=== PATIENT | female | born 1950 | race African-American/Black ===

== ENCOUNTER 2019-02-05 13:45 | Inpatient (IN) | payer MEDICARE, MEDICAID ==
[~2019-02-05] VITALS: Ht 170.2 cm; Wt 191.1 kg
[~2019-02-05 13:45] MED LIST: ACET1TAB14 PO; ASPI-1393 PO; ERGO500013 PO; GABA800T PO; HYDR100T26 PO; LASIX PO; LOTENSIN PO; METO-539 PO; NORVASC; POTASSIUM PO
[2019-02-05] MEDS ORDERED: FUROSEMIDE 40MG/4ML VIAL IV ONE (14:15)
[2019-02-05] MEDS ORDERED: NITROGLYCERIN OINT 1GM/INCH UDPKT TD ONE (14:15)
[2019-02-05] MEDS ORDERED: ASPIRIN 81MG TABLET PO ONE (14:15)
[2019-02-05] MEDS ORDERED: IPRATROPIUM BROMIDE (0.02%) 0.5MG/2.5ML NEB HHN STA (14:28)
[2019-02-05] MEDS ORDERED: METHYLPREDNISOLONE SOD SUCC 125 MG/2 ML VIAL IV STA (14:28)
[2019-02-05] MEDS ORDERED: ALBUTEROL (0.083%) 2.5MG/3ML NEB HHN STA (14:28)
[2019-02-05 15:35] LABS: BASOPHILS % 0.2 % (0.0-2.0); EOSINOPHILS % 2.1 % (0.0-5.0); HEMATOCRIT. 28.6 % (36.0-48.0); LYMPHOCYTES % 19.9 % (20.0-50.0); MEAN CORPUSCULAR HEMOGLOBIN 31.2 pg (28.0-32.0); MEAN CORPUSCULAR VOLUME 99.4 fL (81.0-99.0); MEAN PLATELET VOLUME 7.9 fl (7.4-10.4); MONOCYTES % 8.6 % (2.0-8.0); NEUTROPHILS % 69.2 % (40.0-76.0); PLATELET 175 x1000/uL (130-400); RED BLOOD CELL COUNT 2.88 mill/uL (4.2-5.4); RED CELL DISTRIBUTION WIDTH 15.2 % (11.6-14.6)
[2019-02-05 15:36] LABS: CHLORIDE 98 mEq/L (98-107)
[2019-02-05 15:41] LABS: INR 1.2; PARTIAL THROMBOPLASTIN TIME 27.8 sec (23.4-31.0)
[2019-02-05] MEDS ORDERED: CLONIDINE 0.1MG TABLET PO PRN (18:30)
[2019-02-05] MEDS: METHYLPREDNISOLONE SOD SUCC 40 MG/ML VIAL IV SCH (20:37)
[2019-02-05] MEDS: METOPROLOL TARTRATE 50MG TABLET PO SCH (20:38)
[2019-02-05] MEDS: IPRATROPIUM/ALBUTEROL 0.5-3(2.5)MG/3ML NEB HHN SCH (21:00)
[2019-02-05 21:52] LABS: BG BASE EXCESS 11.7 mmol/L (-2.0-2.0); BG CARBOXYHEMOGLOBIN 0.4 % (0.5-1.5); BG DEOXYHEMOGLOBIN 3.7 % (0.0-5.0); BG FRACTION INSPIRED OXYGEN 28; BG HCO3 ACT 38.6 mmol/L (22.0-26.0); BG METHEMOGLOBIN 0.2 % (0.0-1.5); BG OXYGEN SATURATION 96.3 % (92.0-98.5); BG OXYHEMOGLOBIN 95.7 % (94.0-97.0); BG PCO2 65.7 mmHg (35.0-45.0); BG PH 7.387 (7.350-7.450); BG PO2 87.3 mmHg (75.0-100.0); BG SAMPLE SITE RIGHT RADIAL; BG TOTAL HEMOGLOBIN 9.8 g/dL (12.0-18.0); BG VENT MODE NASAL CANNULA
[2019-02-05] MEDS: HYDRALAZINE HCL 100MG TABLET PO SCH (21:57)
[2019-02-05 23:25] LABS: CREATINE KINASE MB FRACTION 1.9 ng/mL (0.5-3.6)
[2019-02-06 00:25] VITALS: BP 133/64
[2019-02-06] MEDS: IPRATROPIUM/ALBUTEROL 0.5-3(2.5)MG/3ML NEB HHN SCH ×6 (02:52→21:11)
[2019-02-06] MEDS: METHYLPREDNISOLONE SOD SUCC 40 MG/ML VIAL IV SCH ×3 (03:23→17:53)
[2019-02-06] MEDS: ACETAMINOPHEN 325MG TABLET PO PRN (03:39)
[2019-02-06 04:00] VITALS: BP 141/63
[2019-02-06 06:46] LABS: HEMATOCRIT. 26.6 % (36.0-48.0); HEMOGLOBIN. 8.5 g/dL (12.0-16.0); MEAN CORPUSCULAR HEMOGLOBIN 31.2 pg (28.0-32.0); MEAN CORPUSCULAR VOLUME 98.2 fL (81.0-99.0); MEAN PLATELET VOLUME 7.9 fl (7.4-10.4); PLATELET 159 x1000/uL (130-400); RED BLOOD CELL COUNT 2.71 mill/uL (4.2-5.4); RED CELL DISTRIBUTION WIDTH 14.9 % (11.6-14.6)
[2019-02-06 06:54] LABS: CHLORIDE 100 mEq/L (98-107)
[2019-02-06 07:05] LABS: CREATINE KINASE 242 IU/L (26-192)
[2019-02-06 07:07] LABS: CREATINE KINASE MB FRACTION 1.4 ng/mL (0.5-3.6)
[2019-02-06] MEDS: HYDRALAZINE HCL 100MG TABLET PO SCH ×3 (07:08→21:56)
[2019-02-06 08:36] VITALS: BP 146/74
[2019-02-06] MEDS: BENAZEPRIL 10MG TABLET PO SCH ×2 (09:00→10:06)
[2019-02-06] MEDS: ASPIRIN 81MG EC TABLET PO SCH (10:06)
[2019-02-06] MEDS: FUROSEMIDE 100MG/10ML VIAL IVP SCH ×2 (10:07→17:53)
[2019-02-06] MEDS: METOPROLOL TARTRATE 50MG TABLET PO SCH ×2 (10:07→21:57)
[2019-02-06 11:41] VITALS: BP 118/58
[2019-02-06 12:55] LABS: PLATELET ESTIMATE NORMAL
[2019-02-06 16:01] VITALS: BP 118/57
[2019-02-06 20:00] VITALS: BP 144/36
[2019-02-07] VITALS (8 sets, daily range): BP systolic 112–162; BP diastolic 56–89
[2019-02-07] MEDS: IPRATROPIUM/ALBUTEROL 0.5-3(2.5)MG/3ML NEB HHN SCH ×5 (00:18→15:39)
[2019-02-07] MEDS: ACETAMINOPHEN 325MG TABLET PO PRN ×2 (01:29→19:06)
[2019-02-07] MEDS: METHYLPREDNISOLONE SOD SUCC 40 MG/ML VIAL IV SCH ×3 (03:03→19:12)
[2019-02-07] MEDS: HYDRALAZINE HCL 100MG TABLET PO SCH ×3 (06:00→22:04)
[2019-02-07 06:25] LABS: HEMATOCRIT. 26.6 % (36.0-48.0); HEMOGLOBIN. 8.4 g/dL (12.0-16.0); MEAN CORPUSCULAR HEMOGLOBIN 30.8 pg (28.0-32.0); MEAN CORPUSCULAR VOLUME 97.8 fL (81.0-99.0); MEAN PLATELET VOLUME 8.2 fl (7.4-10.4); PLATELET 170 x1000/uL (130-400); RED BLOOD CELL COUNT 2.72 mill/uL (4.2-5.4); RED CELL DISTRIBUTION WIDTH 15.3 % (11.6-14.6)
[2019-02-07 06:34] LABS: CHLORIDE 96 mEq/L (98-107)
[2019-02-07] MEDS: FUROSEMIDE 100MG/10ML VIAL IVP SCH ×2 (09:00→18:25)
[2019-02-07] MEDS: METOPROLOL TARTRATE 50MG TABLET PO SCH ×2 (09:34→22:04)
[2019-02-07] MEDS: BENAZEPRIL 10MG TABLET PO SCH (09:35)
[2019-02-07] MEDS: ASPIRIN 81MG EC TABLET PO SCH (09:35)
[2019-02-07 10:47] LABS: PLATELET ESTIMATE NORMAL
[2019-02-07 15:28] LABS: CHLORIDE 96 mEq/L (98-107)
[2019-02-08] VITALS (8 sets, daily range): BP systolic 141–173; BP diastolic 72–90
[2019-02-08] MEDS: IPRATROPIUM/ALBUTEROL 0.5-3(2.5)MG/3ML NEB HHN SCH ×5 (00:56→20:39)
[2019-02-08] MEDS: METHYLPREDNISOLONE SOD SUCC 40 MG/ML VIAL IV SCH ×3 (02:48→18:50)
[2019-02-08] MEDS: ONDANSETRON HCL 4MG/2ML INJ IV PRN ×3 (05:15→14:16)
[2019-02-08] MEDS ORDERED: PANTOPRAZOLE SODIUM 40 MG/VIAL IV SCH ×2 (07:00→21:00)
[2019-02-08] MEDS: BENAZEPRIL 10MG TABLET PO SCH (09:00)
[2019-02-08] MEDS: ASPIRIN 81MG EC TABLET PO SCH (09:00)
[2019-02-08] MEDS: DEXT 5%/0.9% NACL 1,000 ML IV SCH (10:47)
[2019-02-08 11:05] LABS: HEMATOCRIT. 27.3 % (36.0-48.0); HEMOGLOBIN. 8.7 g/dL (12.0-16.0); MEAN CORPUSCULAR HEMOGLOBIN 31.5 pg (28.0-32.0); MEAN CORPUSCULAR VOLUME 99.1 fL (81.0-99.0); MEAN PLATELET VOLUME 8.1 fl (7.4-10.4); PLATELET 158 x1000/uL (130-400); RED BLOOD CELL COUNT 2.75 mill/uL (4.2-5.4); RED CELL DISTRIBUTION WIDTH 15.3 % (11.6-14.6)
[2019-02-08 11:06] LABS: CHLORIDE 96 mEq/L (98-107)
[2019-02-08] MEDS: FUROSEMIDE 100MG/10ML VIAL IVP SCH ×2 (11:54→16:28)
[2019-02-08 13:49] LABS: PLATELET ESTIMATE NORMAL
[2019-02-08] MEDS: HYDRALAZINE HCL 100MG TABLET PO SCH ×2 (14:00→23:51)
[2019-02-08] MEDS: METOCLOPRAMIDE HCL 10MG/2ML VIAL IV SCH ×2 (14:16→22:47)
[2019-02-08] MEDS ORDERED: HYDRALAZINE 20MG/ML VIAL IV PRN (15:30)
[2019-02-08] MEDS ORDERED: HYDRALAZINE 20MG/ML VIAL IV NR (15:53)
[2019-02-08] MEDS: PANTOPRAZOLE SODIUM 40 MG/VIAL IV SCH (16:28)
[2019-02-08] MEDS ORDERED: BISACODYL 10MG SUPP PR PRN (16:45)
[2019-02-08] MEDS: HYDRALAZINE 20MG/ML VIAL IV SCH ×2 (16:58→22:47)
[2019-02-08] MEDS: ENALAPRIL 1.25MG/ML VIAL 1ML IV SCH ×2 (17:07→23:51)
[2019-02-08] MEDS: CLONIDINE HCL 0.3MG/24HR PATCH TD SCH (17:07)
[2019-02-08] MEDS: SUCRALFATE 1 G/10 ML UDC PO SCH ×2 (17:14→22:47)
[2019-02-08] MEDS: METOPROLOL TARTRATE 50MG TABLET PO SCH (21:00)
[2019-02-08] MEDS: AMLODIPINE 5MG TABLET PO SCH (22:47)
[2019-02-09] VITALS (12 sets, daily range): BP systolic 143–183; BP diastolic 74–106
[2019-02-09] MEDS: IPRATROPIUM/ALBUTEROL 0.5-3(2.5)MG/3ML NEB HHN SCH ×7 (00:17→21:55)
[2019-02-09 00:33] LABS: HEMATOCRIT. 28.2 % (36.0-48.0); HEMOGLOBIN. 8.9 g/dL (12.0-16.0); MEAN CORPUSCULAR HEMOGLOBIN 31.4 pg (28.0-32.0); MEAN CORPUSCULAR VOLUME 99.3 fL (81.0-99.0); MEAN PLATELET VOLUME 8.1 fl (7.4-10.4); PLATELET 167 x1000/uL (130-400); RED BLOOD CELL COUNT 2.84 mill/uL (4.2-5.4); RED CELL DISTRIBUTION WIDTH 15.3 % (11.6-14.6)
[2019-02-09 00:50] LABS: TOTAL IRON BINDING CAPACITY 402 ug/dL (250-450)
[2019-02-09] MEDS: METHYLPREDNISOLONE SOD SUCC 40 MG/ML VIAL IV SCH ×3 (01:37→18:04)
[2019-02-09] MEDS: DEXT 5%/0.9% NACL 1,000 ML IV SCH ×2 (01:37→16:08)
[2019-02-09] MEDS: HYDRALAZINE 20MG/ML VIAL IV SCH ×5 (01:38→21:01)
[2019-02-09 01:53] LABS: FERRITIN 59 ng/mL (10-291)
[2019-02-09 02:05] LABS: VITAMIN B12 SERUM 461 pg/mL (211-911)
[2019-02-09] MEDS: ONDANSETRON HCL 4MG/2ML INJ IV PRN ×2 (02:45→14:03)
[2019-02-09] MEDS: ENALAPRIL 1.25MG/ML VIAL 1ML IV SCH (05:22)
[2019-02-09] MEDS: METOCLOPRAMIDE HCL 10MG/2ML VIAL IV SCH ×3 (05:22→21:01)
[2019-02-09] MEDS: HYDRALAZINE HCL 100MG TABLET PO SCH ×3 (05:24→22:20)
[2019-02-09 05:41] LABS: PLATELET ESTIMATE NORMAL
[2019-02-09] MEDS: SUCRALFATE 1 G/10 ML UDC PO SCH ×4 (06:28→21:01)
[2019-02-09 07:43] LABS: HEMATOCRIT 28.6 % (36.0-48.0); HEMOGLOBIN 9.1 g/dL (12.0-16.0)
[2019-02-09] MEDS: BENAZEPRIL 10MG TABLET PO SCH (09:00)
[2019-02-09] MEDS: DOCUSATE SODIUM 250MG CAPSULE PO SCH (09:00)
[2019-02-09] MEDS: AMLODIPINE 5MG TABLET PO SCH ×2 (09:00→21:01)
[2019-02-09] MEDS: METOPROLOL TARTRATE 50MG TABLET PO SCH ×2 (09:00→21:02)
[2019-02-09] MEDS ORDERED: PANTOPRAZOLE SODIUM 40 MG/VIAL IV SCH (09:00)
[2019-02-09] MEDS: PANTOPRAZOLE SODIUM 40 MG/VIAL IV SCH ×2 (09:18→17:25)
[2019-02-09] MEDS: FUROSEMIDE 100MG/10ML VIAL IVP SCH ×2 (09:18→17:00)
[2019-02-09 11:09] LABS: BG BASE EXCESS 22.2 mmol/L (-2.0-2.0); BG CARBOXYHEMOGLOBIN 0.5 % (0.5-1.5); BG DEOXYHEMOGLOBIN 2.6 % (0.0-5.0); BG FRACTION INSPIRED OXYGEN 32; BG HCO3 ACT 52.6 mmol/L (22.0-26.0); BG METHEMOGLOBIN 0.3 % (0.0-1.5); BG OXYGEN SATURATION 97.4 % (92.0-98.5); BG OXYHEMOGLOBIN 96.6 % (94.0-97.0); BG PCO2 105.9 mmHg (35.0-45.0); BG PH 7.314 (7.350-7.450); BG PO2 105.4 mmHg (75.0-100.0); BG SAMPLE SITE RIGHT RADIAL; BG TOTAL HEMOGLOBIN 10.1 g/dL (12.0-18.0); BG VENT MODE NASAL CANNULA
[2019-02-09] MEDS: ENALAPRIL 2.5MG/2ML VIAL 2ML IV SCH ×2 (12:29→17:24)
[2019-02-09 13:42] LABS: HEMATOCRIT 27.9 % (36.0-48.0); HEMOGLOBIN 8.8 g/dL (12.0-16.0)
[2019-02-09 13:47] LABS: INR 1.2; PARTIAL THROMBOPLASTIN TIME 23.6 sec (23.4-31.0); PROTHROMBIN TIME 12.7 sec (9.6-11.0)
[2019-02-09 14:00] LABS: BG BASE EXCESS 26.2 mmol/L (-2.0-2.0); BG BILEVEL POS AIRWAY PRESSURE 20/5; BG CARBOXYHEMOGLOBIN 0.5 % (0.5-1.5); BG DEOXYHEMOGLOBIN 1.4 % (0.0-5.0); BG FRACTION INSPIRED OXYGEN 50; BG HCO3 ACT 56.6 mmol/L (22.0-26.0); BG METHEMOGLOBIN 0.4 % (0.0-1.5); BG OXYGEN SATURATION 98.6 % (92.0-98.5); BG OXYHEMOGLOBIN 97.7 % (94.0-97.0); BG PCO2 108.4 mmHg (35.0-45.0); BG PH 7.336 (7.350-7.450); BG PO2 148.6 mmHg (75.0-100.0); BG SAMPLE SITE RIGHT RADIAL; BG VENT MODE MASK - BIPAP
[2019-02-09] MEDS ORDERED: LIDOCAINE HCL/PF 1% 2ML VIAL ONE (14:24)
[2019-02-09] MEDS ORDERED: IPRATROPIUM/ALBUTEROL 0.5-3(2.5)MG/3ML NEB HHN PRN (14:30)
[2019-02-09] MEDS ORDERED: ACETAZOLAMIDE SODIUM 500MG/VIAL IV SCH (15:00)
[2019-02-09 17:45] LABS: BG BASE EXCESS 19.7 mmol/L (-2.0-2.0); BG CARBOXYHEMOGLOBIN 0.6 % (0.5-1.5); BG DEOXYHEMOGLOBIN 15.7 % (0.0-5.0); BG FRACTION INSPIRED OXYGEN 24; BG HCO3 ACT 49.2 mmol/L (22.0-26.0); BG METHEMOGLOBIN 0.4 % (0.0-1.5); BG OXYGEN SATURATION 84.1 % (92.0-98.5); BG OXYHEMOGLOBIN 83.3 % (94.0-97.0); BG PCO2 93.2 mmHg (35.0-45.0); BG PO2 51.7 mmHg (75.0-100.0); BG SAMPLE SITE RIGHT RADIAL; BG TOTAL HEMOGLOBIN 10.3 g/dL (12.0-18.0); BG VENT MODE NASAL CANNULA
[2019-02-09 18:20] LABS: HEMATOCRIT 28.9 % (36.0-48.0); HEMOGLOBIN 9.1 g/dL (12.0-16.0)
[2019-02-10] VITALS (8 sets, daily range): BP systolic 138–164; BP diastolic 71–93
[2019-02-10] MEDS: IPRATROPIUM/ALBUTEROL 0.5-3(2.5)MG/3ML NEB HHN SCH ×6 (01:09→20:19)
[2019-02-10] MEDS: METHYLPREDNISOLONE SOD SUCC 40 MG/ML VIAL IV SCH ×3 (01:13→16:47)
[2019-02-10] MEDS: ONDANSETRON HCL 4MG/2ML INJ IV PRN (01:15)
[2019-02-10] MEDS: HYDRALAZINE 20MG/ML VIAL IV SCH ×4 (03:00→21:00)
[2019-02-10] MEDS: HYDRALAZINE HCL 100MG TABLET PO SCH ×3 (06:00→22:00)
[2019-02-10] MEDS: METOCLOPRAMIDE HCL 10MG/2ML VIAL IV SCH ×3 (06:00→22:21)
[2019-02-10] MEDS: ENALAPRIL 2.5MG/2ML VIAL 2ML IV SCH ×4 (06:00→16:46)
[2019-02-10] MEDS: SUCRALFATE 1 G/10 ML UDC PO SCH ×4 (07:30→21:00)
[2019-02-10 08:53] LABS: BG BASE EXCESS 18.8 mmol/L (-2.0-2.0); BG DEOXYHEMOGLOBIN 1.7 % (0.0-5.0); BG FRACTION INSPIRED OXYGEN 36; BG HCO3 ACT 50.8 mmol/L (22.0-26.0); BG METHEMOGLOBIN 0.3 % (0.0-1.5); BG OXYGEN SATURATION 98.3 % (92.0-98.5); BG PCO2 119.9 mmHg (35.0-45.0); BG PH 7.245 (7.350-7.450); BG PO2 134.5 mmHg (75.0-100.0); BG SAMPLE SITE RIGHT RADIAL; BG TOTAL HEMOGLOBIN 11.2 g/dL (12.0-18.0); BG VENT MODE NASAL CANNULA
[2019-02-10] MEDS: DOCUSATE SODIUM 250MG CAPSULE PO SCH (09:00)
[2019-02-10] MEDS: METOPROLOL TARTRATE 50MG TABLET PO SCH ×2 (09:00→21:00)
[2019-02-10] MEDS: BENAZEPRIL 10MG TABLET PO SCH (09:00)
[2019-02-10] MEDS: AMLODIPINE 5MG TABLET PO SCH ×2 (09:00→21:00)
[2019-02-10] MEDS: ASPIRIN 81MG EC TABLET PO SCH (09:00)
[2019-02-10 09:07] LABS: FOLATE HEMATOCRIT 27.2 % (34.0-46.6)
[2019-02-10 09:21] LABS: HEMATOCRIT. 33.7 % (36.0-48.0); HEMOGLOBIN. 10.3 g/dL (12.0-16.0); MEAN CORPUSCULAR HEMOGLOBIN 30.8 pg (28.0-32.0); MEAN CORPUSCULAR VOLUME 101.1 fL (81.0-99.0); MEAN PLATELET VOLUME 8.4 fl (7.4-10.4); PLATELET 194 x1000/uL (130-400); RED BLOOD CELL COUNT 3.34 mill/uL (4.2-5.4); RED CELL DISTRIBUTION WIDTH 15.4 % (11.6-14.6)
[2019-02-10 09:24] LABS: CHLORIDE 95 mEq/L (98-107)
[2019-02-10] MEDS: DEXT 5%/0.9% NACL 1,000 ML IV SCH (10:05)
[2019-02-10] MEDS: PANTOPRAZOLE SODIUM 40 MG/VIAL IV SCH ×2 (10:05→16:47)
[2019-02-10 13:58] LABS: BG BASE EXCESS 21.1 mmol/L (-2.0-2.0); BG CARBOXYHEMOGLOBIN 1.2 % (0.5-1.5); BG DEOXYHEMOGLOBIN 51.3 % (0.0-5.0); BG FRACTION INSPIRED OXYGEN 21; BG HCO3 ACT 53.3 mmol/L (22.0-26.0); BG METHEMOGLOBIN 0.2 % (0.0-1.5); BG OXYHEMOGLOBIN 47.3 % (94.0-97.0); BG PCO2 117.4 mmHg (35.0-45.0); BG PH 7.275 (7.350-7.450); BG PO2 < 30.3 mmHg (75.0-100.0); BG SAMPLE SITE RIGHT RADIAL; BG VENT MODE ROOM AIR
[2019-02-10 14:12] LABS: FOLATE RBC 1059 ng/mL (>498)
[2019-02-10 17:49] LABS: PLATELET ESTIMATE NORMAL
[2019-02-11] VITALS (14 sets, daily range): BP systolic 148–174; BP diastolic 45–103
[2019-02-11] MEDS: IPRATROPIUM/ALBUTEROL 0.5-3(2.5)MG/3ML NEB HHN SCH ×6 (00:28→20:31)
[2019-02-11] MEDS: DEXT 5%/0.9% NACL 1,000 ML IV SCH ×2 (01:21→18:26)
[2019-02-11] MEDS: METHYLPREDNISOLONE SOD SUCC 40 MG/ML VIAL IV SCH ×3 (01:24→18:25)
[2019-02-11] MEDS: HYDRALAZINE 20MG/ML VIAL IV SCH ×4 (03:23→22:08)
[2019-02-11] MEDS: METOCLOPRAMIDE HCL 10MG/2ML VIAL IV SCH ×3 (05:18→22:07)
[2019-02-11] MEDS: HYDRALAZINE HCL 100MG TABLET PO SCH ×3 (05:20→22:00)
[2019-02-11] MEDS: ENALAPRIL 2.5MG/2ML VIAL 2ML IV SCH ×4 (05:20→18:26)
[2019-02-11] MEDS: SUCRALFATE 1 G/10 ML UDC PO SCH ×4 (07:30→21:00)
[2019-02-11] MEDS: BENAZEPRIL 10MG TABLET PO SCH (08:10)
[2019-02-11] MEDS: DOCUSATE SODIUM 250MG CAPSULE PO SCH (08:10)
[2019-02-11] MEDS: ASPIRIN 81MG EC TABLET PO SCH (08:10)
[2019-02-11] MEDS: AMLODIPINE 5MG TABLET PO SCH ×2 (08:10→22:05)
[2019-02-11] MEDS: METOPROLOL TARTRATE 50MG TABLET PO SCH (08:10)
[2019-02-11] MEDS: PANTOPRAZOLE SODIUM 40 MG/VIAL IV SCH ×2 (08:48→18:25)
[2019-02-11] MEDS: LABETALOL 5MG/ML SYR 20 MG/4 ML SYRINGE IV SCH ×2 (13:37→18:26)
[2019-02-11 14:40] LABS: BG BASE EXCESS 18.7 mmol/L (-2.0-2.0); BG BILEVEL POS AIRWAY PRESSURE 20/5; BG CARBOXYHEMOGLOBIN 0.8 % (0.5-1.5); BG DEOXYHEMOGLOBIN 4.7 % (0.0-5.0); BG FRACTION INSPIRED OXYGEN 35; BG HCO3 ACT 46.8 mmol/L (22.0-26.0); BG METHEMOGLOBIN 0.4 % (0.0-1.5); BG OXYGEN SATURATION 95.2 % (92.0-98.5); BG OXYHEMOGLOBIN 94.1 % (94.0-97.0); BG PCO2 81.3 mmHg (35.0-45.0); BG PH 7.378 (7.350-7.450); BG PO2 80.4 mmHg (75.0-100.0); BG SAMPLE SITE RIGHT RADIAL; BG TOTAL HEMOGLOBIN 9.4 g/dL (12.0-18.0); BG VENT MODE MASK - BIPAP; BG VENT RATE 16 set
[2019-02-11 16:27] LABS: HEMATOCRIT. 29.2 % (36.0-48.0); HEMOGLOBIN. 9.1 g/dL (12.0-16.0); MEAN CORPUSCULAR HEMOGLOBIN 31.1 pg (28.0-32.0); MEAN CORPUSCULAR VOLUME 99.7 fL (81.0-99.0); MEAN PLATELET VOLUME 8.4 fl (7.4-10.4); PLATELET 161 x1000/uL (130-400); RED BLOOD CELL COUNT 2.93 mill/uL (4.2-5.4); RED CELL DISTRIBUTION WIDTH 15.2 % (11.6-14.6)
[2019-02-11 16:48] LABS: PLATELET ESTIMATE NORMAL
[2019-02-12] VITALS (15 sets, daily range): BP systolic 130–168; BP diastolic 69–90
[2019-02-12] MEDS: IPRATROPIUM/ALBUTEROL 0.5-3(2.5)MG/3ML NEB HHN SCH ×4 (00:49→21:48)
[2019-02-12] MEDS: ENALAPRIL 2.5MG/2ML VIAL 2ML IV SCH ×4 (01:23→18:02)
[2019-02-12] MEDS: LABETALOL 5MG/ML SYR 20 MG/4 ML SYRINGE IV SCH ×4 (01:23→19:00)
[2019-02-12] MEDS: METHYLPREDNISOLONE SOD SUCC 40 MG/ML VIAL IV SCH ×3 (02:06→18:03)
[2019-02-12] MEDS: HYDRALAZINE 20MG/ML VIAL IV SCH ×5 (02:14→21:05)
[2019-02-12] MEDS: HYDRALAZINE HCL 100MG TABLET PO SCH ×3 (06:00→21:09)
[2019-02-12 06:34] LABS: HEMATOCRIT. 27.6 % (36.0-48.0); HEMOGLOBIN. 8.8 g/dL (12.0-16.0); MEAN CORPUSCULAR HEMOGLOBIN 31.4 pg (28.0-32.0); MEAN CORPUSCULAR VOLUME 98.8 fL (81.0-99.0); MEAN PLATELET VOLUME 8.3 fl (7.4-10.4); PLATELET 160 x1000/uL (130-400); RED BLOOD CELL COUNT 2.79 mill/uL (4.2-5.4); RED CELL DISTRIBUTION WIDTH 14.9 % (11.6-14.6)
[2019-02-12 06:44] LABS: CHLORIDE 102 mEq/L (98-107)
[2019-02-12] MEDS: METOCLOPRAMIDE HCL 10MG/2ML VIAL IV SCH ×3 (06:58→21:04)
[2019-02-12] MEDS: SUCRALFATE 1 G/10 ML UDC PO SCH ×4 (07:02→20:42)
[2019-02-12] MEDS: ASPIRIN 81MG EC TABLET PO SCH (09:27)
[2019-02-12] MEDS: DOCUSATE SODIUM 250MG CAPSULE PO SCH (09:27)
[2019-02-12] MEDS: PANTOPRAZOLE SODIUM 40 MG/VIAL IV SCH ×2 (09:27→18:02)
[2019-02-12] MEDS: BENAZEPRIL 10MG TABLET PO SCH (09:27)
[2019-02-12] MEDS: AMLODIPINE 5MG TABLET PO SCH ×2 (09:28→20:43)
[2019-02-12] MEDS: DEXT 5%/0.9% NACL 1,000 ML IV SCH (11:06)
[2019-02-12 12:21] LABS: PLATELET ESTIMATE NORMAL
[2019-02-12 14:50] LABS: BG BASE EXCESS 20.8 mmol/L (-2.0-2.0); BG CARBOXYHEMOGLOBIN 0.3 % (0.5-1.5); BG DEOXYHEMOGLOBIN 1.8 % (0.0-5.0); BG FRACTION INSPIRED OXYGEN 32; BG HCO3 ACT 50.3 mmol/L (22.0-26.0); BG METHEMOGLOBIN 0.3 % (0.0-1.5); BG OXYGEN SATURATION 98.2 % (92.0-98.5); BG OXYHEMOGLOBIN 97.6 % (94.0-97.0); BG PCO2 96.9 mmHg (35.0-45.0); BG PH 7.333 (7.350-7.450); BG PO2 133.2 mmHg (75.0-100.0); BG SAMPLE SITE RIGHT RADIAL; BG TOTAL HEMOGLOBIN 9.7 g/dL (12.0-18.0); BG VENT MODE NASAL CANNULA
[2019-02-12] MEDS: FUROSEMIDE 100MG/10ML VIAL IVP SCH (18:02)
[2019-02-12] MEDS ORDERED: KETOROLAC 15MG/ML VIAL IV SCH (19:00)
[2019-02-13] VITALS (13 sets, daily range): BP systolic 141–186; BP diastolic 69–109
[2019-02-13] MEDS: IPRATROPIUM/ALBUTEROL 0.5-3(2.5)MG/3ML NEB HHN SCH ×6 (01:03→21:25)
[2019-02-13] MEDS: ENALAPRIL 2.5MG/2ML VIAL 2ML IV SCH ×5 (01:38→23:38)
[2019-02-13] MEDS: LABETALOL 5MG/ML SYR 20 MG/4 ML SYRINGE IV SCH ×5 (01:39→23:39)
[2019-02-13] MEDS: METHYLPREDNISOLONE SOD SUCC 40 MG/ML VIAL IV SCH ×3 (02:59→18:07)
[2019-02-13] MEDS: DEXT 5%/0.9% NACL 1,000 ML IV SCH ×2 (03:01→17:19)
[2019-02-13] MEDS: HYDRALAZINE HCL 100MG TABLET PO SCH ×3 (05:49→22:21)
[2019-02-13] MEDS: METOCLOPRAMIDE HCL 10MG/2ML VIAL IV SCH ×3 (05:50→22:11)
[2019-02-13 07:47] LABS: HEMATOCRIT. 26.8 % (36.0-48.0); HEMOGLOBIN. 8.4 g/dL (12.0-16.0); MEAN CORPUSCULAR HEMOGLOBIN 31.2 pg (28.0-32.0); MEAN CORPUSCULAR VOLUME 99.2 fL (81.0-99.0); MEAN PLATELET VOLUME 8.3 fl (7.4-10.4); PLATELET 146 x1000/uL (130-400); RED CELL DISTRIBUTION WIDTH 15.4 % (11.6-14.6)
[2019-02-13] MEDS: SUCRALFATE 1 G/10 ML UDC PO SCH ×4 (08:16→22:11)
[2019-02-13] MEDS: BENAZEPRIL 10MG TABLET PO SCH (08:17)
[2019-02-13] MEDS: DOCUSATE SODIUM 250MG CAPSULE PO SCH (08:17)
[2019-02-13] MEDS: ASPIRIN 81MG EC TABLET PO SCH (08:17)
[2019-02-13] MEDS: AMLODIPINE 5MG TABLET PO SCH ×2 (08:17→22:11)
[2019-02-13] MEDS: HYDRALAZINE 20MG/ML VIAL IV SCH ×3 (08:18→22:11)
[2019-02-13] MEDS: PANTOPRAZOLE SODIUM 40 MG/VIAL IV SCH ×2 (08:18→17:10)
[2019-02-13 08:19] LABS: CHLORIDE 103 mEq/L (98-107)
[2019-02-13 08:23] LABS: BG BASE EXCESS 22.4 mmol/L (-2.0-2.0); BG CARBOXYHEMOGLOBIN 0.6 % (0.5-1.5); BG DEOXYHEMOGLOBIN 4.3 % (0.0-5.0); BG FRACTION INSPIRED OXYGEN 32; BG HCO3 ACT 51.9 mmol/L (22.0-26.0); BG METHEMOGLOBIN 0.3 % (0.0-1.5); BG OXYGEN SATURATION 95.7 % (92.0-98.5); BG OXYHEMOGLOBIN 94.8 % (94.0-97.0); BG PCO2 98.1 mmHg (35.0-45.0); BG PH 7.341 (7.350-7.450); BG PO2 84.6 mmHg (75.0-100.0); BG SAMPLE SITE RIGHT RADIAL; BG TOTAL HEMOGLOBIN 9.5 g/dL (12.0-18.0); BG VENT MODE NASAL CANNULA
[2019-02-13] MEDS: FUROSEMIDE 100MG/10ML VIAL IVP SCH ×2 (08:31→13:30)
[2019-02-13] MEDS: ACETAMINOPHEN 325MG TABLET PO PRN ×2 (09:29→23:39)
[2019-02-13 09:32] LABS: PLATELET ESTIMATE NORMAL
[2019-02-14] VITALS (12 sets, daily range): BP systolic 139–159; BP diastolic 62–82
[2019-02-14] MEDS: METHYLPREDNISOLONE SOD SUCC 40 MG/ML VIAL IV SCH ×3 (02:27→17:50)
[2019-02-14] MEDS: HYDRALAZINE 20MG/ML VIAL IV SCH ×4 (02:28→21:02)
[2019-02-14] MEDS: IPRATROPIUM/ALBUTEROL 0.5-3(2.5)MG/3ML NEB HHN SCH ×7 (02:36→23:47)
[2019-02-14] MEDS: ENALAPRIL 2.5MG/2ML VIAL 2ML IV SCH ×3 (06:09→17:24)
[2019-02-14] MEDS: METOCLOPRAMIDE HCL 10MG/2ML VIAL IV SCH ×3 (06:10→22:14)
[2019-02-14] MEDS: LABETALOL 5MG/ML SYR 20 MG/4 ML SYRINGE IV SCH ×3 (06:10→17:24)
[2019-02-14] MEDS: HYDRALAZINE HCL 100MG TABLET PO SCH ×3 (06:10→22:14)
[2019-02-14] MEDS: SUCRALFATE 1 G/10 ML UDC PO SCH ×4 (07:30→21:04)
[2019-02-14] MEDS: DOCUSATE SODIUM 250MG CAPSULE PO SCH (08:25)
[2019-02-14] MEDS: DEXT 5%/0.9% NACL 1,000 ML IV SCH (08:26)
[2019-02-14] MEDS: BENAZEPRIL 10MG TABLET PO SCH (08:26)
[2019-02-14] MEDS: ASPIRIN 81MG EC TABLET PO SCH (08:26)
[2019-02-14] MEDS: AMLODIPINE 5MG TABLET PO SCH ×2 (08:26→21:03)
[2019-02-14] MEDS: FUROSEMIDE 100MG/10ML VIAL IVP SCH (09:09)
[2019-02-14] MEDS: PANTOPRAZOLE SODIUM 40 MG/VIAL IV SCH ×2 (09:09→16:17)
[2019-02-14 10:59] LABS: BG BASE EXCESS 28.2 mmol/L (-2.0-2.0); BG BILEVEL POS AIRWAY PRESSURE 20/5; BG CARBOXYHEMOGLOBIN 0.7 % (0.5-1.5); BG DEOXYHEMOGLOBIN 6.9 % (0.0-5.0); BG FRACTION INSPIRED OXYGEN 35; BG HCO3 ACT 57.4 mmol/L (22.0-26.0); BG METHEMOGLOBIN 0.2 % (0.0-1.5); BG OXYHEMOGLOBIN 92.2 % (94.0-97.0); BG PH 7.404 (7.350-7.450); BG PO2 66.6 mmHg (75.0-100.0); BG SAMPLE SITE RIGHT RADIAL; BG VENT MODE MASK - BIPAP
[2019-02-14] MEDS: ACETAMINOPHEN 325MG TABLET PO PRN (17:51)
[2019-02-15] VITALS (12 sets, daily range): BP systolic 130–172; BP diastolic 56–89
[2019-02-15] MEDS: LABETALOL 5MG/ML SYR 20 MG/4 ML SYRINGE IV SCH ×2 (00:39→05:25)
[2019-02-15] MEDS: ENALAPRIL 2.5MG/2ML VIAL 2ML IV SCH ×2 (00:41→07:23)
[2019-02-15] MEDS: METHYLPREDNISOLONE SOD SUCC 40 MG/ML VIAL IV SCH ×3 (02:23→18:03)
[2019-02-15] MEDS: HYDRALAZINE 20MG/ML VIAL IV SCH ×2 (03:16→08:20)
[2019-02-15] MEDS: IPRATROPIUM/ALBUTEROL 0.5-3(2.5)MG/3ML NEB HHN SCH ×5 (03:48→20:35)
[2019-02-15] MEDS: METOCLOPRAMIDE HCL 10MG/2ML VIAL IV SCH ×3 (05:21→22:26)
[2019-02-15] MEDS: HYDRALAZINE HCL 100MG TABLET PO SCH ×3 (05:26→22:26)
[2019-02-15] MEDS: PANTOPRAZOLE SODIUM 40 MG/VIAL IV SCH ×2 (08:19→16:40)
[2019-02-15] MEDS: AMLODIPINE 5MG TABLET PO SCH ×2 (08:19→20:51)
[2019-02-15] MEDS: SUCRALFATE 1 G/10 ML UDC PO SCH ×4 (08:19→20:53)
[2019-02-15] MEDS: ASPIRIN 81MG EC TABLET PO SCH (08:20)
[2019-02-15] MEDS: FUROSEMIDE 100MG/10ML VIAL IVP SCH (08:20)
[2019-02-15] MEDS: DOCUSATE SODIUM 250MG CAPSULE PO SCH (08:20)
[2019-02-15] MEDS: BENAZEPRIL 10MG TABLET PO SCH (08:20)
[2019-02-15] MEDS: CLONIDINE HCL 0.3MG/24HR PATCH TD SCH (08:21)
[2019-02-15 09:34] LABS: BG BASE EXCESS 22.5 mmol/L (-2.0-2.0); BG BILEVEL POS AIRWAY PRESSURE 20/5; BG CARBOXYHEMOGLOBIN 0.8 % (0.5-1.5); BG DEOXYHEMOGLOBIN 4.8 % (0.0-5.0); BG FRACTION INSPIRED OXYGEN 35; BG HCO3 ACT 49.8 mmol/L (22.0-26.0); BG METHEMOGLOBIN 0.3 % (0.0-1.5); BG OXYGEN SATURATION 95.1 % (92.0-98.5); BG OXYHEMOGLOBIN 94.1 % (94.0-97.0); BG PCO2 72.8 mmHg (35.0-45.0); BG PH 7.453 (7.350-7.450); BG PO2 78.8 mmHg (75.0-100.0); BG SAMPLE SITE RIGHT RADIAL; BG VENT MODE MASK - BIPAP
[2019-02-15] MEDS: ACETAZOLAMIDE 250MG TABLET PO SCH (11:01)
[2019-02-15] MEDS: METOPROLOL TARTRATE 50MG TABLET PO SCH ×2 (12:21→20:52)
[2019-02-15 12:46] LABS: MEAN CORPUSCULAR HEMOGLOBIN 31.5 pg (28.0-32.0); MEAN CORPUSCULAR VOLUME 98.5 fL (81.0-99.0); MEAN PLATELET VOLUME 8.5 fl (7.4-10.4); PLATELET 138 x1000/uL (130-400); RED BLOOD CELL COUNT 3.07 mill/uL (4.2-5.4); RED CELL DISTRIBUTION WIDTH 15.2 % (11.6-14.6)
[2019-02-15 13:00] LABS: CHLORIDE 93 mEq/L (98-107)
[2019-02-15 13:01] LABS: HEMATOCRIT. 30.3 % (36.0-48.0); HEMOGLOBIN. 9.7 g/dL (12.0-16.0)
[2019-02-15] MEDS ORDERED: LIDOCAINE HCL/PF 1% 2ML VIAL ONE (13:07)
[2019-02-15 14:48] LABS: PLATELET ESTIMATE NORMAL
[2019-02-15] MEDS: ACETAMINOPHEN 325MG TABLET PO PRN (16:41)
[2019-02-15] MEDS ORDERED: POTASSIUM CHLORIDE INJ 40 MEQ in DEXT 5% WATER 250 ML IV NR (20:30)
[2019-02-15] MEDS ORDERED: METOPROLOL TARTRATE 50MG TABLET PO SCH (21:00)
[2019-02-16] VITALS (12 sets, daily range): BP systolic 112–137; BP diastolic 52–83
[2019-02-16] MEDS: IPRATROPIUM/ALBUTEROL 0.5-3(2.5)MG/3ML NEB HHN SCH ×5 (01:59→20:58)
[2019-02-16] MEDS: METHYLPREDNISOLONE SOD SUCC 40 MG/ML VIAL IV SCH ×3 (03:21→18:47)
[2019-02-16] MEDS: HYDRALAZINE HCL 100MG TABLET PO SCH ×3 (06:38→23:14)
[2019-02-16] MEDS: METOCLOPRAMIDE HCL 10MG/2ML VIAL IV SCH ×3 (06:38→23:13)
[2019-02-16 08:13] LABS: HEMATOCRIT. 28.1 % (36.0-48.0); MEAN CORPUSCULAR HEMOGLOBIN 31.4 pg (28.0-32.0); MEAN CORPUSCULAR VOLUME 97.8 fL (81.0-99.0); MEAN PLATELET VOLUME 8.8 fl (7.4-10.4); PLATELET 129 x1000/uL (130-400); RED BLOOD CELL COUNT 2.88 mill/uL (4.2-5.4); RED CELL DISTRIBUTION WIDTH 14.9 % (11.6-14.6)
[2019-02-16 08:19] LABS: CHLORIDE 95 mEq/L (98-107)
[2019-02-16] MEDS: DOCUSATE SODIUM 250MG CAPSULE PO SCH (09:00)
[2019-02-16] MEDS: SUCRALFATE 1 G/10 ML UDC PO SCH ×4 (09:03→23:14)
[2019-02-16] MEDS: FUROSEMIDE 100MG/10ML VIAL IVP SCH (09:03)
[2019-02-16] MEDS: PANTOPRAZOLE SODIUM 40 MG/VIAL IV SCH ×2 (09:03→18:47)
[2019-02-16] MEDS: ASPIRIN 81MG EC TABLET PO SCH (09:04)
[2019-02-16] MEDS: BENAZEPRIL 10MG TABLET PO SCH (09:04)
[2019-02-16] MEDS: METOPROLOL TARTRATE 50MG TABLET PO SCH ×2 (09:05→23:14)
[2019-02-16] MEDS: AMLODIPINE 5MG TABLET PO SCH ×2 (09:05→23:14)
[2019-02-16] MEDS: ACETAMINOPHEN 325MG TABLET PO PRN ×2 (09:25→23:21)
[2019-02-16 12:48] LABS: BG BASE EXCESS 20.1 mmol/L (-2.0-2.0); BG CARBOXYHEMOGLOBIN 0.8 % (0.5-1.5); BG DEOXYHEMOGLOBIN 3.8 % (0.0-5.0); BG FRACTION INSPIRED OXYGEN 28; BG HCO3 ACT 49.3 mmol/L (22.0-26.0); BG METHEMOGLOBIN 0.4 % (0.0-1.5); BG OXYGEN SATURATION 96.2 % (92.0-98.5); BG PH 7.366 (7.350-7.450); BG PO2 86.5 mmHg (75.0-100.0); BG SAMPLE SITE RIGHT RADIAL; BG TOTAL HEMOGLOBIN 10.9 g/dL (12.0-18.0); BG VENT MODE NASAL CANNULA
[2019-02-16 14:18] LABS: PLATELET ESTIMATE SLIGHTLY DECREASED
[2019-02-17] VITALS (13 sets, daily range): BP systolic 103–132; BP diastolic 44–68
[2019-02-17] MEDS: IPRATROPIUM/ALBUTEROL 0.5-3(2.5)MG/3ML NEB HHN SCH ×6 (00:35→21:35)
[2019-02-17] MEDS: METHYLPREDNISOLONE SOD SUCC 40 MG/ML VIAL IV SCH ×3 (02:55→18:15)
[2019-02-17] MEDS: HYDRALAZINE HCL 100MG TABLET PO SCH ×3 (06:00→22:00)
[2019-02-17] MEDS: METOCLOPRAMIDE HCL 10MG/2ML VIAL IV SCH ×3 (06:00→22:00)
[2019-02-17] MEDS: SUCRALFATE 1 G/10 ML UDC PO SCH ×4 (08:04→23:03)
[2019-02-17] MEDS: DOCUSATE SODIUM 250MG CAPSULE PO SCH (08:49)
[2019-02-17] MEDS: ASPIRIN 81MG EC TABLET PO SCH (08:49)
[2019-02-17] MEDS: FUROSEMIDE 100MG/10ML VIAL IVP SCH (08:49)
[2019-02-17] MEDS: ACETAZOLAMIDE 250MG TABLET PO SCH (08:49)
[2019-02-17] MEDS: PANTOPRAZOLE SODIUM 40 MG/VIAL IV SCH ×2 (08:50→17:18)
[2019-02-17] MEDS: AMLODIPINE 5MG TABLET PO SCH ×2 (09:00→21:00)
[2019-02-17] MEDS: METOPROLOL TARTRATE 50MG TABLET PO SCH ×2 (09:00→21:00)
[2019-02-17] MEDS: BENAZEPRIL 10MG TABLET PO SCH (09:00)
[2019-02-17] MEDS: ACETAMINOPHEN 325MG TABLET PO PRN (16:39)
[2019-02-18] VITALS (7 sets, daily range): BP systolic 107–124; BP diastolic 49–71
[2019-02-18] MEDS: IPRATROPIUM/ALBUTEROL 0.5-3(2.5)MG/3ML NEB HHN SCH ×4 (00:48→12:36)
[2019-02-18] MEDS: METHYLPREDNISOLONE SOD SUCC 40 MG/ML VIAL IV SCH ×2 (03:06→10:08)
[2019-02-18] MEDS: HYDRALAZINE HCL 100MG TABLET PO SCH ×2 (06:26→13:36)
[2019-02-18] MEDS: METOCLOPRAMIDE HCL 10MG/2ML VIAL IV SCH ×2 (06:26→13:36)
[2019-02-18] MEDS: SUCRALFATE 1 G/10 ML UDC PO SCH ×2 (08:36→12:26)
[2019-02-18] MEDS: PANTOPRAZOLE SODIUM 40 MG/VIAL IV SCH (08:36)
[2019-02-18] MEDS: ASPIRIN 81MG EC TABLET PO SCH (08:36)
[2019-02-18] MEDS: FUROSEMIDE 100MG/10ML VIAL IVP SCH (08:36)
[2019-02-18] MEDS: BENAZEPRIL 10MG TABLET PO SCH (08:38)
[2019-02-18] MEDS: AMLODIPINE 5MG TABLET PO SCH (08:38)
[2019-02-18] MEDS: DOCUSATE SODIUM 250MG CAPSULE PO SCH (08:39)
[2019-02-18] MEDS: METOPROLOL TARTRATE 50MG TABLET PO SCH (09:00)
[2019-02-18] MEDS: ACETAMINOPHEN 325MG TABLET PO PRN (11:15)
== END 2019-02-18 16:00 | disposition home health service (06) | DRG 291 ==
LOC: ER 13:45 → 6WST 17:12 → ENRESERV 23:07 → 5EST 02-08 13:31
PROVIDERS: ADMIT Internal Medicine; ATTEND Internal Medicine
PROC: 05H533Z Insertion of Infusion Device into Right Subclavian Vein, Percutaneous Approach (ICD-10-PCS; principal; 2019-02-07)
PROC: B546ZZA Ultrasonography of Right Subclavian Vein, Guidance (ICD-10-PCS; 2019-02-07)
PROC: 5A09357 Assistance with Respiratory Ventilation, Less than 24 Consecutive Hours, Continuous Positive Airway Pressure (ICD-10-PCS; 2019-02-09)
PROC: 5A09357 Assistance with Respiratory Ventilation, Less than 24 Consecutive Hours, Continuous Positive Airway Pressure (ICD-10-PCS; 2019-02-10)
PROC: 5A09357 Assistance with Respiratory Ventilation, Less than 24 Consecutive Hours, Continuous Positive Airway Pressure (ICD-10-PCS; 2019-02-11)
PROC: 5A09357 Assistance with Respiratory Ventilation, Less than 24 Consecutive Hours, Continuous Positive Airway Pressure (ICD-10-PCS; 2019-02-12)
PROC: 5A09357 Assistance with Respiratory Ventilation, Less than 24 Consecutive Hours, Continuous Positive Airway Pressure (ICD-10-PCS; 2019-02-13)
PROC: 5A09357 Assistance with Respiratory Ventilation, Less than 24 Consecutive Hours, Continuous Positive Airway Pressure (ICD-10-PCS; 2019-02-14)
PROC: 5A09357 Assistance with Respiratory Ventilation, Less than 24 Consecutive Hours, Continuous Positive Airway Pressure (ICD-10-PCS; 2019-02-15)
DX: I11.0 Hypertensive heart disease with heart failure (principal); J96.22 Acute and chronic respiratory failure with hypercapnia; J96.21 Acute and chronic respiratory failure with hypoxia; K92.2 Gastrointestinal hemorrhage, unspecified; J44.1 Chronic obstructive pulmonary disease with (acute) exacerbation; E87.4 Mixed disorder of acid-base balance; K56.7 Ileus, unspecified; Z68.44 Body mass index [BMI] 60.0-69.9, adult; I50.33 Acute on chronic diastolic (congestive) heart failure; I07.1 Rheumatic tricuspid insufficiency; E66.01 Morbid (severe) obesity due to excess calories; D53.9 Nutritional anemia, unspecified; I35.0 Nonrheumatic aortic (valve) stenosis; K21.9 Gastro-esophageal reflux disease without esophagitis; I27.20 Pulmonary hypertension, unspecified; G47.33 Obstructive sleep apnea (adult) (pediatric); Z99.81 Dependence on supplemental oxygen; Z79.82 Long term (current) use of aspirin; Z85.42 Personal history of malignant neoplasm of other parts of uterus; Z79.899 Other long term (current) drug therapy; Z92.3 Personal history of irradiation; Z88.6 Allergy status to analgesic agent; Z88.8 Allergy status to other drugs, medicaments and biological substances; Z71.89 Other specified counseling
CPT/HCPCS: 36415; 36600; 71045; 74018; 76700; 76937; 80048; 80053; 80061; 82140; 82375; 82550; 82553; 82607; 82728; 82747; 82805; 82962; 83540; 83550; 83735; 83880; 84443; 84484; 85014; 85018; 85025; 93005; 93306; 93970; 94640; 96374; 97116; 97163; 97167; 99285; C1725; C1769; C1893; C9113; J0360; J1120; J1885; J1940; J2405; J2765; J2920; J2930; J3480; J3490; J7042; J7060; J7611; J7620

== ENCOUNTER 2020-04-28 17:56 | Inpatient (IN) | payer MEDICARE, MEDICAID ==
[~2020-04-28] VITALS: Ht 167.6 cm; Wt 181.0 kg
[~2020-04-28 17:56] MED LIST changes: -ACET1TAB14 PO; -ASPI-1393 PO; +ASPI-1497 PO
[2020-04-28] MEDS ORDERED: IPRATROPIUM/ALBUTEROL 0.5-3(2.5)MG/3ML NEB HHN ONE (18:30)
[2020-04-28] MEDS ORDERED: FUROSEMIDE 40MG/4ML VIAL IV ONE (18:45)
[2020-04-28] MEDS: NITROGLYCERIN OINT 1GM/INCH UDPKT TD ONE ×2 (18:51→18:52)
[2020-04-28 19:07] LABS: BASOPHILS % 0.3 % (0.0-2.0); EOSINOPHILS % 3.8 % (0.0-5.0); HEMATOCRIT. 32.9 % (36.0-48.0); HEMOGLOBIN. 10.6 g/dL (12.0-16.0); LYMPHOCYTES % 24.7 % (20.0-50.0); MEAN CORPUSCULAR HEMOGLOBIN 30.2 pg (28.0-32.0); MEAN CORPUSCULAR VOLUME 93.8 fL (81.0-99.0); MEAN PLATELET VOLUME 7.9 fl (7.4-10.4); MONOCYTES % 6.5 % (2.0-8.0); NEUTROPHILS % 64.7 % (40.0-76.0); PLATELET 214 x1000/uL (130-400); RED BLOOD CELL COUNT 3.51 mill/uL (4.2-5.4); RED CELL DISTRIBUTION WIDTH 15.9 % (11.6-14.6)
[2020-04-28 19:12] LABS: CHLORIDE 103 mEq/L (98-107)
[2020-04-28] MEDS ORDERED: AZITHROMYCIN 500 MG in DEXT 5% WATER 250 ML IV ONE (20:00)
[2020-04-28] MEDS ORDERED: CEFTRIAXONE 1 G PREMIX 50 ML IV ONE (20:00)
[2020-04-29 01:05] VITALS: BP 115/68
[2020-04-29] MEDS ORDERED: *PATIENT'S OWN MEDICATION STORAGE XX SCH (02:00)
[2020-04-29] MEDS ORDERED: DOCU-286 PO (03:45)
[2020-04-29] MEDS ORDERED: POTA20TA82 PO (03:45)
[2020-04-29] MEDS ORDERED: METO100T16 PO (03:45)
[2020-04-29] MEDS ORDERED: SILD20TA PO (03:45)
[2020-04-29] MEDS ORDERED: BENA40TA9 PO (03:45)
[2020-04-29] MEDS ORDERED: FERR325T6 PO (03:45)
[2020-04-29] MEDS ORDERED: IPRA3AMP9 HHN (03:45)
[2020-04-29] MEDS ORDERED: CLON0.1T PO (03:45)
[2020-04-29] MEDS ORDERED: MEGE40TA8 PO (03:45)
[2020-04-29] MEDS ORDERED: IPRATROPIUM/ALBUTEROL 0.5-3(2.5)MG/3ML NEB HHN NR (04:00)
[2020-04-29 04:41] VITALS: BP 124/70
[2020-04-29] MEDS: ACETAMINOPHEN 325MG TABLET PO PRN (06:48)
[2020-04-29 08:00] VITALS: BP 103/44
[2020-04-29] MEDS ORDERED: CEFTRIAXONE 1 GM IV SCH (08:30)
[2020-04-29] MEDS: FUROSEMIDE 40MG/4ML VIAL IVP SCH (08:38)
[2020-04-29] MEDS: POTASSIUM CHLORIDE 20MEQ TABLET SR PO SCH (08:40)
[2020-04-29] MEDS: SILDENAFIL CITRATE 20MG TABLET PO SCH ×3 (08:40→18:02)
[2020-04-29] MEDS: ENOXAPARIN 40MG/0.4ML SYR SUBCUT SCH ×2 (08:40→21:38)
[2020-04-29] MEDS: DOCUSATE SODIUM 100MG CAPSULE PO SCH ×2 (08:51→18:02)
[2020-04-29] MEDS: CLONIDINE 0.1MG TABLET PO SCH ×2 (08:52→18:02)
[2020-04-29] MEDS: ASPIRIN 81MG EC TABLET PO SCH (08:52)
[2020-04-29] MEDS: HYDRALAZINE HCL 100MG TABLET PO SCH ×3 (08:53→18:01)
[2020-04-29] MEDS: LISINOPRIL 20MG TABLET PO SCH (08:54)
[2020-04-29] MEDS: METOPROLOL TARTRATE 100MG TABLET PO SCH (08:54)
[2020-04-29] MEDS ORDERED: LIDOCAINE HCL/PF 1% 2ML VIAL ONE (09:00)
[2020-04-29] MEDS ORDERED: ENOXAPARIN 40MG/0.4ML SYR SUBCUT SCH (09:00)
[2020-04-29 09:11] LABS: BASOPHILS % 0.2 % (0.0-2.0); EOSINOPHILS % 3.8 % (0.0-5.0); HEMATOCRIT. 29.7 % (36.0-48.0); HEMOGLOBIN. 9.6 g/dL (12.0-16.0); LYMPHOCYTES % 25.3 % (20.0-50.0); MEAN PLATELET VOLUME 7.6 fl (7.4-10.4); MONOCYTES % 6.3 % (2.0-8.0); NEUTROPHILS % 64.4 % (40.0-76.0); PLATELET 178 x1000/uL (130-400); RED CELL DISTRIBUTION WIDTH 15.6 % (11.6-14.6)
[2020-04-29 09:21] LABS: CHLORIDE 102 mEq/L (98-107)
[2020-04-29] MEDS: CEFTRIAXONE 1,000 MG in DEXTROSE 5% WATER 50 ML IV SCH (10:18)
[2020-04-29 10:33] LABS: BG BASE EXCESS 6.8 mmol/L (-2.0-2.0); BG CARBOXYHEMOGLOBIN 0.3 % (0.5-1.5); BG DEOXYHEMOGLOBIN 2.7 % (0.0-5.0); BG FRACTION INSPIRED OXYGEN 32; BG HCO3 ACT 32.4 mmol/L (22.0-26.0); BG METHEMOGLOBIN 0.3 % (0.0-1.5); BG OXYGEN SATURATION 97.3 % (92.0-98.5); BG OXYHEMOGLOBIN 96.7 % (94.0-97.0); BG PCO2 51.9 mmHg (35.0-45.0); BG PH 7.413 (7.350-7.450); BG PO2 101.3 mmHg (75.0-100.0); BG SAMPLE SITE LEFT RADIAL; BG TOTAL HEMOGLOBIN 10.1 g/dL (12.0-18.0); BG VENT MODE NASAL CANNULA
[2020-04-29] MEDS: AZITHROMYCIN 500 MG in DEXT 5% WATER 250 ML IV SCH (11:13)
[2020-04-29 11:18] VITALS: BP 102/42
[2020-04-29 13:15] VITALS: BP 121/58
[2020-04-29] MEDS ORDERED: METHYLPREDNISOLONE SOD SUCC 125 MG/2 ML VIAL IV NR (15:00)
[2020-04-29] MEDS: IPRATROPIUM/ALBUTEROL 0.5-3(2.5)MG/3ML NEB HHN PRN ×2 (17:13→21:50)
[2020-04-29] MEDS ORDERED: ALBUTEROL 6.7GM HFA INHALER ORI SCH (18:00)
[2020-04-29 20:00] VITALS: BP 116/59
[2020-04-29] MEDS: METHYLPREDNISOLONE SOD SUCC 40 MG/ML VIAL IV SCH (23:34)
[2020-04-30] VITALS: BP 113/53
[2020-04-30] MEDS: IPRATROPIUM/ALBUTEROL 0.5-3(2.5)MG/3ML NEB HHN PRN ×4 (02:34→20:21)
[2020-04-30 04:00] VITALS: BP 104/54
[2020-04-30] MEDS: METHYLPREDNISOLONE SOD SUCC 40 MG/ML VIAL IV SCH ×3 (06:52→22:09)
[2020-04-30 08:00] VITALS: BP 121/56
[2020-04-30] MEDS: DOCUSATE SODIUM 100MG CAPSULE PO SCH ×2 (09:00→17:58)
[2020-04-30] MEDS: ASPIRIN 81MG EC TABLET PO SCH (09:07)
[2020-04-30] MEDS: METOPROLOL TARTRATE 100MG TABLET PO SCH (09:07)
[2020-04-30] MEDS: FUROSEMIDE 40MG/4ML VIAL IVP SCH (09:07)
[2020-04-30] MEDS: POTASSIUM CHLORIDE 20MEQ TABLET SR PO SCH (09:07)
[2020-04-30] MEDS: LISINOPRIL 20MG TABLET PO SCH (09:07)
[2020-04-30] MEDS: SILDENAFIL CITRATE 20MG TABLET PO SCH ×3 (09:07→17:58)
[2020-04-30] MEDS: ENOXAPARIN 40MG/0.4ML SYR SUBCUT SCH ×2 (09:08→20:28)
[2020-04-30] MEDS: HYDRALAZINE HCL 100MG TABLET PO SCH ×3 (09:11→17:58)
[2020-04-30] MEDS: CLONIDINE 0.1MG TABLET PO SCH ×2 (09:11→17:00)
[2020-04-30 12:00] VITALS: BP 115/58
[2020-04-30] MEDS: CEFTRIAXONE 1,000 MG in DEXTROSE 5% WATER 50 ML IV SCH (12:31)
[2020-04-30] MEDS: AZITHROMYCIN 500 MG in DEXT 5% WATER 250 ML IV SCH (12:31)
[2020-04-30 16:00] VITALS: BP 120/62
[2020-04-30 20:00] VITALS: BP 132/62
[2020-05-01] VITALS: BP 114/50
[2020-05-01] MEDS: IPRATROPIUM/ALBUTEROL 0.5-3(2.5)MG/3ML NEB HHN PRN ×5 (01:57→21:03)
[2020-05-01 04:00] VITALS: BP 125/65
[2020-05-01] MEDS: METHYLPREDNISOLONE SOD SUCC 40 MG/ML VIAL IV SCH ×3 (06:14→23:00)
[2020-05-01 08:00] VITALS: BP 141/58
[2020-05-01] MEDS: FUROSEMIDE 40MG/4ML VIAL IVP SCH (08:50)
[2020-05-01] MEDS: HYDRALAZINE HCL 100MG TABLET PO SCH ×3 (08:50→17:30)
[2020-05-01] MEDS: POTASSIUM CHLORIDE 20MEQ TABLET SR PO SCH (08:50)
[2020-05-01] MEDS: SILDENAFIL CITRATE 20MG TABLET PO SCH ×3 (08:50→17:30)
[2020-05-01] MEDS: CLONIDINE 0.1MG TABLET PO SCH ×2 (08:51→17:00)
[2020-05-01] MEDS: ENOXAPARIN 40MG/0.4ML SYR SUBCUT SCH ×2 (08:51→20:45)
[2020-05-01] MEDS: ASPIRIN 81MG EC TABLET PO SCH (08:52)
[2020-05-01] MEDS: METOPROLOL TARTRATE 100MG TABLET PO SCH (08:53)
[2020-05-01] MEDS: LISINOPRIL 20MG TABLET PO SCH (08:55)
[2020-05-01] MEDS: DOCUSATE SODIUM 100MG CAPSULE PO SCH ×2 (09:00→17:00)
[2020-05-01] MEDS: CEFTRIAXONE 1,000 MG in DEXTROSE 5% WATER 50 ML IV SCH (11:58)
[2020-05-01 12:00] VITALS: BP 128/78
[2020-05-01] MEDS: AZITHROMYCIN 500 MG in DEXT 5% WATER 250 ML IV SCH (12:34)
[2020-05-01 16:00] VITALS: BP 108/55
[2020-05-01 20:00] VITALS: BP 117/61
[2020-05-02] VITALS: BP 124/60
[2020-05-02] MEDS: IPRATROPIUM/ALBUTEROL 0.5-3(2.5)MG/3ML NEB HHN PRN ×7 (01:16→23:47)
[2020-05-02 04:00] VITALS: BP 125/54
[2020-05-02] MEDS: METHYLPREDNISOLONE SOD SUCC 40 MG/ML VIAL IV SCH ×3 (06:04→23:50)
[2020-05-02 08:00] VITALS: BP 139/80
[2020-05-02] MEDS: CLONIDINE 0.1MG TABLET PO SCH ×2 (08:13→17:00)
[2020-05-02] MEDS: ASPIRIN 81MG EC TABLET PO SCH (08:32)
[2020-05-02] MEDS: SILDENAFIL CITRATE 20MG TABLET PO SCH ×3 (08:32→17:11)
[2020-05-02] MEDS: FUROSEMIDE 40MG/4ML VIAL IVP SCH (08:32)
[2020-05-02] MEDS: ENOXAPARIN 40MG/0.4ML SYR SUBCUT SCH ×2 (08:32→23:51)
[2020-05-02] MEDS: HYDRALAZINE HCL 100MG TABLET PO SCH ×3 (08:33→17:11)
[2020-05-02] MEDS: METOPROLOL TARTRATE 100MG TABLET PO SCH (08:33)
[2020-05-02] MEDS: LISINOPRIL 20MG TABLET PO SCH (08:33)
[2020-05-02] MEDS: DOCUSATE SODIUM 100MG CAPSULE PO SCH ×2 (08:33→17:11)
[2020-05-02] MEDS: POTASSIUM CHLORIDE 20MEQ TABLET SR PO SCH (08:33)
[2020-05-02] MEDS ORDERED: AZITHROMYCIN 500 MG TABLET PO SCH (09:00)
[2020-05-02 09:39] LABS: FOLIC ACID (FOLATE) SERUM 7.3 ng/mL (>5.38)
[2020-05-02] MEDS ORDERED: FLUT1BLS3 INH (09:43)
[2020-05-02] MEDS ORDERED: P20 MT (09:43)
[2020-05-02] MEDS ORDERED: IPRA3AMP9 NEB (09:43)
[2020-05-02] MEDS ORDERED: ALBU05 IH (09:43)
[2020-05-02] MEDS ORDERED: AZIT250T12 PO (09:58)
[2020-05-02 12:00] VITALS: BP 126/77
[2020-05-02] MEDS: CEFTRIAXONE 1,000 MG in DEXTROSE 5% WATER 50 ML IV SCH (12:28)
[2020-05-02 16:00] VITALS: BP 130/73
[2020-05-02] MEDS: CYANOCOBALAMIN 1000MCG/ML VIAL IM SCH (17:11)
[2020-05-02 20:00] VITALS: BP 134/70
[2020-05-03] VITALS: BP 171/83
[2020-05-03 04:00] VITALS: BP 104/77
[2020-05-03] MEDS: IPRATROPIUM/ALBUTEROL 0.5-3(2.5)MG/3ML NEB HHN PRN ×4 (04:47→17:40)
[2020-05-03] MEDS: METHYLPREDNISOLONE SOD SUCC 40 MG/ML VIAL IV SCH ×3 (07:12→23:00)
[2020-05-03 08:00] VITALS: BP 134/61
[2020-05-03] MEDS: CLONIDINE 0.1MG TABLET PO SCH ×2 (09:00→16:17)
[2020-05-03] MEDS: ASPIRIN 81MG EC TABLET PO SCH (09:00)
[2020-05-03] MEDS: DOCUSATE SODIUM 100MG CAPSULE PO SCH ×2 (09:00→16:17)
[2020-05-03] MEDS: POTASSIUM CHLORIDE 20MEQ TABLET SR PO SCH (09:47)
[2020-05-03] MEDS: FUROSEMIDE 40MG/4ML VIAL IVP SCH (09:47)
[2020-05-03] MEDS: SILDENAFIL CITRATE 20MG TABLET PO SCH ×3 (09:47→17:21)
[2020-05-03] MEDS: HYDRALAZINE HCL 100MG TABLET PO SCH ×3 (09:47→17:21)
[2020-05-03] MEDS: ENOXAPARIN 40MG/0.4ML SYR SUBCUT SCH ×2 (09:47→23:00)
[2020-05-03] MEDS: LISINOPRIL 20MG TABLET PO SCH (09:47)
[2020-05-03] MEDS: METOPROLOL TARTRATE 100MG TABLET PO SCH (09:48)
[2020-05-03] MEDS: CYANOCOBALAMIN 1000MCG/ML VIAL IM SCH (09:48)
[2020-05-03 12:00] VITALS: BP 169/79
[2020-05-03] MEDS: CEFTRIAXONE 1,000 MG in DEXTROSE 5% WATER 50 ML IV SCH (12:14)
[2020-05-03] MEDS: ONDANSETRON HCL 4MG/2ML INJ IV PRN ×2 (13:33→23:00)
[2020-05-03 16:00] VITALS: BP 132/67
[2020-05-04] VITALS: BP 153/80
[2020-05-04] MEDS: IPRATROPIUM/ALBUTEROL 0.5-3(2.5)MG/3ML NEB HHN PRN ×5 (01:12→21:02)
[2020-05-04 04:00] VITALS: BP 158/66
[2020-05-04] MEDS: METHYLPREDNISOLONE SOD SUCC 40 MG/ML VIAL IV SCH ×3 (06:25→19:56)
[2020-05-04] MEDS: ONDANSETRON HCL 4MG/2ML INJ IV PRN ×3 (06:25→15:50)
[2020-05-04 08:00] VITALS: BP 141/85
[2020-05-04] MEDS: ENOXAPARIN 40MG/0.4ML SYR SUBCUT SCH ×2 (08:36→19:56)
[2020-05-04] MEDS: CYANOCOBALAMIN 1000MCG/ML VIAL IM SCH (08:36)
[2020-05-04] MEDS: FUROSEMIDE 40MG/4ML VIAL IVP SCH (08:36)
[2020-05-04] MEDS: PANTOPRAZOLE SODIUM 40 MG/VIAL IV SCH (08:36)
[2020-05-04] MEDS: METOPROLOL TARTRATE 100MG TABLET PO SCH (08:37)
[2020-05-04] MEDS: POTASSIUM CHLORIDE 20MEQ TABLET SR PO SCH (08:37)
[2020-05-04] MEDS: HYDRALAZINE HCL 100MG TABLET PO SCH ×3 (08:37→16:37)
[2020-05-04] MEDS: SILDENAFIL CITRATE 20MG TABLET PO SCH ×3 (08:37→16:37)
[2020-05-04] MEDS: LISINOPRIL 20MG TABLET PO SCH (08:37)
[2020-05-04] MEDS: CLONIDINE 0.1MG TABLET PO SCH ×2 (08:38→16:38)
[2020-05-04] MEDS: DOCUSATE SODIUM 100MG CAPSULE PO SCH ×2 (08:38→16:38)
[2020-05-04] MEDS: ASPIRIN 81MG EC TABLET PO SCH (08:38)
[2020-05-04] MEDS: ACETAMINOPHEN 325MG TABLET PO PRN ×2 (08:54→16:37)
[2020-05-04 12:00] VITALS: BP 173/99
[2020-05-04] MEDS: CEFTRIAXONE 1,000 MG in DEXTROSE 5% WATER 50 ML IV SCH (12:28)
[2020-05-04 16:00] VITALS: BP 166/85
[2020-05-04] MEDS: SODIUM CHLORIDE 0.9% 1,000 ML IV SCH (16:55)
[2020-05-04 18:20] LABS: CHLORIDE 96 mEq/L (98-107)
[2020-05-04 19:09] LABS: BG BASE EXCESS 22.6 mmol/L (-2.0-2.0); BG CARBOXYHEMOGLOBIN 0.3 % (0.5-1.5); BG DEOXYHEMOGLOBIN 3.7 % (0.0-5.0); BG FRACTION INSPIRED OXYGEN 36; BG HCO3 ACT 52.8 mmol/L (22.0-26.0); BG METHEMOGLOBIN 0.3 % (0.0-1.5); BG OXYGEN SATURATION 96.3 % (92.0-98.5); BG OXYHEMOGLOBIN 95.7 % (94.0-97.0); BG PCO2 96.3 mmHg (35.0-45.0); BG PH 7.357 (7.350-7.450); BG PO2 85.8 mmHg (75.0-100.0); BG SAMPLE SITE RIGHT RADIAL; BG TOTAL HEMOGLOBIN 11.6 g/dL (12.0-18.0); BG VENT MODE NASAL CANNULA
[2020-05-04] MEDS: METOCLOPRAMIDE HCL 10MG/2ML VIAL IV SCH (19:56)
[2020-05-04 20:00] VITALS: BP 155/65
[2020-05-05] VITALS: BP 158/75
[2020-05-05 04:00] VITALS: BP 166/71
[2020-05-05 06:21] LABS: HEMATOCRIT. 32.9 % (36.0-48.0); HEMOGLOBIN. 10.5 g/dL (12.0-16.0); MEAN CORPUSCULAR HEMOGLOBIN 30.2 pg (28.0-32.0); MEAN CORPUSCULAR VOLUME 94.3 fL (81.0-99.0); MEAN PLATELET VOLUME 8.6 fl (7.4-10.4); PLATELET 185 x1000/uL (130-400); RED BLOOD CELL COUNT 3.49 mill/uL (4.2-5.4); RED CELL DISTRIBUTION WIDTH 15.1 % (11.6-14.6)
[2020-05-05] MEDS: METOCLOPRAMIDE HCL 10MG/2ML VIAL IV SCH ×3 (06:25→21:56)
[2020-05-05] MEDS: METHYLPREDNISOLONE SOD SUCC 40 MG/ML VIAL IV SCH ×3 (06:26→22:01)
[2020-05-05 06:32] LABS: CHLORIDE 94 mEq/L (98-107)
[2020-05-05 08:00] VITALS: BP 110/70
[2020-05-05] MEDS: LISINOPRIL 20MG TABLET PO SCH (09:00)
[2020-05-05] MEDS: HYDRALAZINE HCL 100MG TABLET PO SCH ×3 (09:00→16:17)
[2020-05-05] MEDS: CLONIDINE 0.1MG TABLET PO SCH ×2 (09:00→16:10)
[2020-05-05] MEDS: DOCUSATE SODIUM 100MG CAPSULE PO SCH ×2 (09:00→16:10)
[2020-05-05 09:40] LABS: BG CARBOXYHEMOGLOBIN 0.2 % (0.5-1.5); BG FRACTION INSPIRED OXYGEN 36; BG HCO3 ACT 52.4 mmol/L (22.0-26.0); BG METHEMOGLOBIN 0.5 % (0.0-1.5); BG OXYHEMOGLOBIN 98.3 % (94.0-97.0); BG PCO2 124.4 mmHg (35.0-45.0); BG PH 7.242 (7.350-7.450); BG PO2 206.2 mmHg (75.0-100.0); BG SAMPLE SITE RIGHT RADIAL; BG TOTAL HEMOGLOBIN 11.3 g/dL (12.0-18.0); BG VENT MODE NASAL CANNULA
[2020-05-05] MEDS: PANTOPRAZOLE SODIUM 40 MG/VIAL IV SCH (10:29)
[2020-05-05] MEDS: CYANOCOBALAMIN 1000MCG/ML VIAL IM SCH (10:30)
[2020-05-05] MEDS: METOPROLOL TARTRATE 100MG TABLET PO SCH (10:30)
[2020-05-05] MEDS: ASPIRIN 81MG EC TABLET PO SCH (10:30)
[2020-05-05] MEDS: POTASSIUM CHLORIDE 20MEQ TABLET SR PO SCH (10:30)
[2020-05-05] MEDS: FUROSEMIDE 40MG TABLET PO SCH (10:30)
[2020-05-05] MEDS: SILDENAFIL CITRATE 20MG TABLET PO SCH ×3 (10:31→16:17)
[2020-05-05] MEDS: ACETAZOLAMIDE 250MG TABLET PO SCH ×3 (10:32→16:17)
[2020-05-05] MEDS: ENOXAPARIN 40MG/0.4ML SYR SUBCUT SCH ×2 (10:32→21:40)
[2020-05-05] MEDS: IPRATROPIUM/ALBUTEROL 0.5-3(2.5)MG/3ML NEB HHN PRN ×3 (10:55→21:06)
[2020-05-05 12:00] VITALS: BP 144/73
[2020-05-05] MEDS: SODIUM CHLORIDE 0.9% 1,000 ML IV SCH (12:36)
[2020-05-05 16:00] VITALS: BP 126/67
[2020-05-05 19:38] LABS: PLATELET ESTIMATE NORMAL
[2020-05-05 20:00] VITALS: BP 150/46
[2020-05-05] MEDS: ACETAMINOPHEN 325MG TABLET PO PRN (21:37)
[2020-05-06] VITALS: BP 122/60
[2020-05-06 04:00] VITALS: BP 136/52
[2020-05-06] MEDS: IPRATROPIUM/ALBUTEROL 0.5-3(2.5)MG/3ML NEB HHN PRN ×4 (04:50→16:10)
[2020-05-06] MEDS: METHYLPREDNISOLONE SOD SUCC 40 MG/ML VIAL IV SCH ×2 (06:02→15:57)
[2020-05-06] MEDS: METOCLOPRAMIDE HCL 10MG/2ML VIAL IV SCH ×2 (06:02→13:28)
[2020-05-06 07:09] LABS: CHLORIDE 90 mEq/L (98-107)
[2020-05-06 07:13] LABS: HEMATOCRIT. 31.4 % (36.0-48.0); MEAN CORPUSCULAR HEMOGLOBIN 30.3 pg (28.0-32.0); MEAN CORPUSCULAR VOLUME 95.2 fL (81.0-99.0); MEAN PLATELET VOLUME 8.9 fl (7.4-10.4); PLATELET 184 x1000/uL (130-400); RED BLOOD CELL COUNT 3.29 mill/uL (4.2-5.4); RED CELL DISTRIBUTION WIDTH 15.3 % (11.6-14.6)
[2020-05-06 08:00] VITALS: BP 114/50
[2020-05-06] MEDS: CLONIDINE 0.1MG TABLET PO SCH ×2 (08:19→16:34)
[2020-05-06] MEDS: HYDRALAZINE HCL 100MG TABLET PO SCH ×3 (08:19→17:16)
[2020-05-06] MEDS: ENOXAPARIN 40MG/0.4ML SYR SUBCUT SCH (08:54)
[2020-05-06] MEDS: CYANOCOBALAMIN 1000MCG/ML VIAL IM SCH (08:55)
[2020-05-06] MEDS: ACETAZOLAMIDE 250MG TABLET PO SCH ×3 (08:55→17:16)
[2020-05-06] MEDS: METOPROLOL TARTRATE 100MG TABLET PO SCH (08:55)
[2020-05-06] MEDS: SILDENAFIL CITRATE 20MG TABLET PO SCH ×3 (08:55→17:16)
[2020-05-06] MEDS: DOCUSATE SODIUM 100MG CAPSULE PO SCH ×3 (08:55→17:00)
[2020-05-06] MEDS: ASPIRIN 81MG EC TABLET PO SCH (08:55)
[2020-05-06] MEDS: FUROSEMIDE 40MG TABLET PO SCH (08:55)
[2020-05-06] MEDS: POTASSIUM CHLORIDE 20MEQ TABLET SR PO SCH (08:55)
[2020-05-06] MEDS: LISINOPRIL 20MG TABLET PO SCH (08:56)
[2020-05-06] MEDS: SODIUM CHLORIDE 0.9% 1,000 ML IV SCH (08:56)
[2020-05-06] MEDS ORDERED: FAMOTIDINE 20MG/2ML VIAL IV SCH (09:00)
[2020-05-06 09:47] LABS: BG BASE EXCESS 14.3 mmol/L (-2.0-2.0); BG CARBOXYHEMOGLOBIN 0.4 % (0.5-1.5); BG DEOXYHEMOGLOBIN 2.4 % (0.0-5.0); BG FRACTION INSPIRED OXYGEN 32; BG HCO3 ACT 43.1 mmol/L (22.0-26.0); BG METHEMOGLOBIN 0.3 % (0.0-1.5); BG OXYGEN SATURATION 97.6 % (92.0-98.5); BG OXYHEMOGLOBIN 96.9 % (94.0-97.0); BG PCO2 82.7 mmHg (35.0-45.0); BG PH 7.335 (7.350-7.450); BG PO2 97.2 mmHg (75.0-100.0); BG SAMPLE SITE RIGHT RADIAL; BG TOTAL HEMOGLOBIN 10.7 g/dL (12.0-18.0); BG VENT MODE NASAL CANNULA
[2020-05-06 12:00] VITALS: BP 104/56
[2020-05-06 14:07] LABS: PLATELET ESTIMATE NORMAL
[2020-05-06 16:00] VITALS: BP 120/64
[2020-05-06 18:31] VITALS: BP 120/64
[2020-05-07 17:06] LABS: 25-HYDROXY VITAMIN D3 35 ng/mL (.)
== END 2020-05-06 19:30 | disposition home or self-care (01) | DRG 193 ==
LOC: ER 17:56 → 7WST 21:27 → EDBEDREQ 21:40 → EDBEDREQTM 21:40 → ENRESERV 23:13 → 5WST 04-29 15:38
PROVIDERS: ADMIT Internal Medicine; ATTEND Internal Medicine
DX: J18.9 Pneumonia, unspecified organism (principal); J96.21 Acute and chronic respiratory failure with hypoxia; J96.22 Acute and chronic respiratory failure with hypercapnia; I50.33 Acute on chronic diastolic (congestive) heart failure; J44.0 Chronic obstructive pulmonary disease with (acute) lower respiratory infection; G82.20 Paraplegia, unspecified; J44.1 Chronic obstructive pulmonary disease with (acute) exacerbation; Z68.44 Body mass index [BMI] 60.0-69.9, adult; I11.0 Hypertensive heart disease with heart failure; E66.01 Morbid (severe) obesity due to excess calories; D64.9 Anemia, unspecified; I27.20 Pulmonary hypertension, unspecified; L98.9 Disorder of the skin and subcutaneous tissue, unspecified; Z20.822 Contact with and (suspected) exposure to COVID-19; Z99.3 Dependence on wheelchair; Z99.81 Dependence on supplemental oxygen; Z74.01 Bed confinement status; Z88.8 Allergy status to other drugs, medicaments and biological substances; Z92.3 Personal history of irradiation; Z85.42 Personal history of malignant neoplasm of other parts of uterus; Z82.49 Family history of ischemic heart disease and other diseases of the circulatory system; Z79.899 Other long term (current) drug therapy; Z71.3 Dietary counseling and surveillance; Z79.82 Long term (current) use of aspirin; G47.33 Obstructive sleep apnea (adult) (pediatric); R53.81 Other malaise; E53.8 Deficiency of other specified B group vitamins; J98.4 Other disorders of lung; R10.9 Unspecified abdominal pain; M17.0 Bilateral primary osteoarthritis of knee
CPT/HCPCS: 36415; 36600; 71045; 73560; 74018; 78580; 80048; 80053; 82306; 82375; 82565; 82607; 82746; 82805; 83605; 83880; 84145; 84443; 84484; 85025; 87426; 92610; 93005; 93306; 93970; 94640; 97163; 97166; 99291; A6261; C9113; J0456; J0696; J1650; J1940; J2405; J2765; J2920; J2930; J3420; J3490; J7030; J7060; U0003; A4315

== ENCOUNTER 2020-10-23 10:02 | Inpatient (IN) | payer MEDICARE, MEDICAID ==
[~2020-10-23] VITALS: Ht 170.2 cm; Wt 181.9 kg
[~2020-10-23 10:02] MED LIST changes: +ALBU05 IH; +AZIT250T12 PO; +BENA40TA9 PO; +CLON0.1T PO; +DOCU-286 PO; -ERGO500013 PO; +FERR325T6 PO; +FLUT1BLS3 INH; -GABA800T PO; +IPRA3AMP9 HHN; +IPRA3AMP9 NEB; -LASIX PO; -LOTENSIN PO; +MEGE40TA8 PO; -METO-539 PO; +METO100T16 PO; -NORVASC; +P20 MT; +POTA20TA82 PO; -POTASSIUM PO; +SILD20TA PO
[2020-10-23] MEDS ORDERED: ACETAMINOPHEN WITH CODEINE 300/60MG TABLET PO ONE (11:30)
[2020-10-23 11:53] LABS: BG BASE EXCESS 6.7 mmol/L (-2.0-2.0); BG CARBOXYHEMOGLOBIN 0.6 % (0.5-1.5); BG DEOXYHEMOGLOBIN 1.3 % (0.0-5.0); BG FRACTION INSPIRED OXYGEN 32; BG HCO3 ACT 32.2 mmol/L (22.0-26.0); BG METHEMOGLOBIN 0.4 % (0.0-1.5); BG OXYGEN SATURATION 98.7 % (92.0-98.5); BG OXYHEMOGLOBIN 97.7 % (94.0-97.0); BG PH 7.402 (7.350-7.450); BG SAMPLE SITE RIGHT RADIAL; BG TOTAL HEMOGLOBIN 7.9 g/dL (12.0-18.0); BG VENT MODE NASAL CANNULA
[2020-10-23 12:11] LABS: BASOPHILS % 0.4 % (0.0-2.0); EOSINOPHILS % 3.1 % (0.0-5.0); HEMATOCRIT. 25.4 % (36.0-48.0); HEMOGLOBIN. 7.7 g/dL (12.0-16.0); LYMPHOCYTES % 21.1 % (20.0-50.0); MEAN CORPUSCULAR HEMOGLOBIN 22.9 pg (28.0-32.0); MEAN CORPUSCULAR VOLUME 75.8 fL (81.0-99.0); MEAN PLATELET VOLUME 7.5 fl (7.4-10.4); MONOCYTES % 5.2 % (2.0-8.0); NEUTROPHILS % 70.2 % (40.0-76.0); PLATELET 235 x1000/uL (130-400); RED BLOOD CELL COUNT 3.35 mill/uL (4.2-5.4); RED CELL DISTRIBUTION WIDTH 20.2 % (11.6-14.6)
[2020-10-23 12:20] LABS: INR 1.1; PROTHROMBIN TIME 11.7 sec (9.6-11.0)
[2020-10-23 12:24] LABS: CHLORIDE 100 mEq/L (98-107)
[2020-10-23 12:36] LABS: CREATINE KINASE 148 IU/L (26-192)
[2020-10-23 14:07] LABS: CLARITY URINE TURBID (CLEAR); COLOR URINE RED (YELLOW); KETONES URINE NEGATIVE (NEGATIVE); LEUKOCYTE ESTERASE URINE 2+ (NEGATIVE); NITRITE URINE POSITIVE (NEGATIVE); OCCULT BLOOD URINE 3+ (NEGATIVE); PH URINE 8.5 (4.5-8.0); PROTEIN URINE 4+ (NEGATIVE); SPECIFIC GRAVITY URINE 1.017 (1.005-1.030); UROBILINOGEN URINE 0.2 E.U./dL (0.2-1.0)
[2020-10-23] MEDS ORDERED: CEFTRIAXONE 1 G PREMIX 50 ML IV ONE (15:15)
[2020-10-23 20:30] VITALS: BP 107/65
[2020-10-23 20:45] VITALS: BP 107/65
[2020-10-23] MEDS ORDERED: ONDANSETRON HCL 4MG/2ML INJ IV PRN (22:00)
[2020-10-23] MEDS ORDERED: ENOXAPARIN 40MG/0.4ML SYR SUBCUT SCH (22:00)
[2020-10-23] MEDS ORDERED: CEFTRIAXONE 1 G PREMIX 50 ML IV SCH (22:00)
[2020-10-23 23:36] VITALS: BP 130/79
[2020-10-23] MEDS: IPRATROPIUM/ALBUTEROL 0.5-3(2.5)MG/3ML NEB HHN PRN (23:48)
[2020-10-24] VITALS (8 sets, daily range): BP systolic 102–148; BP diastolic 48–82
[2020-10-24] MEDS: ACETAMINOPHEN WITH CODEINE 300/60MG TABLET PO PRN (00:10)
[2020-10-24] MEDS: IPRATROPIUM/ALBUTEROL 0.5-3(2.5)MG/3ML NEB HHN PRN ×4 (04:31→21:30)
[2020-10-24] MEDS: FERROUS SULFATE 325MG TABLET PO SCH ×2 (07:40→17:42)
[2020-10-24] MEDS ORDERED: METOPROLOL TARTRATE 100MG TABLET PO SCH (09:00)
[2020-10-24] MEDS ORDERED: SILDENAFIL CITRATE 20MG TABLET PO SCH (09:00)
[2020-10-24] MEDS ORDERED: CLONIDINE 0.1MG TABLET PO SCH (09:00)
[2020-10-24] MEDS ORDERED: FUROSEMIDE 40MG/4ML VIAL IVP SCH (09:00)
[2020-10-24] MEDS ORDERED: ENOXAPARIN 40MG/0.4ML SYR SUBCUT SCH (09:00)
[2020-10-24] MEDS ORDERED: MEGESTROL ACETATE 40MG TABLET PO SCH (09:00)
[2020-10-24] MEDS: SILDENAFIL CITRATE 20MG TABLET PO SCH ×3 (09:20→21:38)
[2020-10-24] MEDS: ACETAMINOPHEN 325MG TABLET PO PRN ×2 (09:22→13:33)
[2020-10-24] MEDS: METOPROLOL TARTRATE 50MG TABLET PO SCH ×2 (09:22→21:00)
[2020-10-24] MEDS: BENAZEPRIL 10MG TABLET PO SCH (09:32)
[2020-10-24] MEDS: POTASSIUM CHLORIDE 20MEQ TABLET SR PO SCH (09:33)
[2020-10-24] MEDS: DOCUSATE SODIUM 100MG CAPSULE PO SCH (09:43)
[2020-10-24] MEDS: FUROSEMIDE 40MG/4ML VIAL IVP SCH ×2 (17:09→17:42)
[2020-10-25] MEDS: CEFTRIAXONE 1,000 MG in DEXTROSE 5% WATER 50 ML IV SCH ×2 (00:44→17:15)
[2020-10-25] MEDS: ACETAMINOPHEN WITH CODEINE 300/60MG TABLET PO PRN ×3 (01:13→21:40)
[2020-10-25 04:00] VITALS: BP 123/75
[2020-10-25] MEDS: SILDENAFIL CITRATE 20MG TABLET PO SCH ×3 (05:43→21:40)
[2020-10-25] MEDS: FUROSEMIDE 40MG/4ML VIAL IVP SCH ×2 (06:25→17:15)
[2020-10-25 08:00] VITALS: BP 100/54
[2020-10-25] MEDS: IPRATROPIUM/ALBUTEROL 0.5-3(2.5)MG/3ML NEB HHN PRN ×3 (08:10→20:43)
[2020-10-25] MEDS: BENAZEPRIL 10MG TABLET PO SCH (09:00)
[2020-10-25] MEDS: MEGESTROL ACETATE 40MG TABLET PO SCH ×2 (09:00→16:11)
[2020-10-25] MEDS: METOPROLOL TARTRATE 50MG TABLET PO SCH (09:00)
[2020-10-25] MEDS: DOCUSATE SODIUM 100MG CAPSULE PO SCH (09:02)
[2020-10-25] MEDS: FERROUS SULFATE 325MG TABLET PO SCH ×2 (09:02→17:15)
[2020-10-25] MEDS: POTASSIUM CHLORIDE 20MEQ TABLET SR PO SCH (09:02)
[2020-10-25 09:27] LABS: BASOPHILS % 0.1 % (0.0-2.0); CHLORIDE 100 mEq/L (98-107); EOSINOPHILS % 4.3 % (0.0-5.0); HEMATOCRIT. 24.3 % (36.0-48.0); HEMOGLOBIN. 7.1 g/dL (12.0-16.0); LYMPHOCYTES % 29.6 % (20.0-50.0); MEAN CORPUSCULAR HEMOGLOBIN 22.6 pg (28.0-32.0); MEAN CORPUSCULAR VOLUME 77.2 fL (81.0-99.0); MEAN PLATELET VOLUME 7.4 fl (7.4-10.4); MONOCYTES % 8.5 % (2.0-8.0); NEUTROPHILS % 57.5 % (40.0-76.0); PLATELET 216 x1000/uL (130-400); RED BLOOD CELL COUNT 3.15 mill/uL (4.2-5.4); RED CELL DISTRIBUTION WIDTH 20.8 % (11.6-14.6)
[2020-10-25 12:00] VITALS: BP 146/57
[2020-10-25 16:00] VITALS: BP 113/65
[2020-10-25 18:52] VITALS: BP 112/63
[2020-10-25 20:00] VITALS: BP 112/63
[2020-10-26] VITALS: BP 106/55
== END 2020-10-26 00:22 | disposition home or self-care (01) | DRG 292 ==
LOC: ER 10:20 → MICUSO 15:05 → EDBEDREQSVC 15:10 → EDBEDREQ 15:10 → EDBEDREQTM 15:10 → 8WST 20:18
PROVIDERS: ADMIT Internal Medicine; ATTEND Internal Medicine
DX: I11.0 Hypertensive heart disease with heart failure (principal); J96.12 Chronic respiratory failure with hypercapnia; N39.0 Urinary tract infection, site not specified; Z68.44 Body mass index [BMI] 60.0-69.9, adult; R65.10 Systemic inflammatory response syndrome (SIRS) of non-infectious origin without acute organ dysfunction; E78.5 Hyperlipidemia, unspecified; G47.33 Obstructive sleep apnea (adult) (pediatric); G89.29 Other chronic pain; I50.33 Acute on chronic diastolic (congestive) heart failure; E66.01 Morbid (severe) obesity due to excess calories; M17.0 Bilateral primary osteoarthritis of knee; J44.9 Chronic obstructive pulmonary disease, unspecified; Z85.42 Personal history of malignant neoplasm of other parts of uterus; Z92.3 Personal history of irradiation; Z20.822 Contact with and (suspected) exposure to COVID-19
CPT/HCPCS: 36415; 36600; 71045; 73560; 80048; 80053; 81003; 82375; 82550; 82728; 82805; 83605; 83615; 83735; 83880; 84145; 84484; 85025; 86140; 87426; 93005; 93306; 94640; 99285; J0696; J1940; J2405; J7040; J7060

== ENCOUNTER 2020-11-14 19:21 | Inpatient (IN) | payer MEDICARE, MEDICAID ==
[~2020-11-14] VITALS: Ht 170.2 cm; Wt 173.3 kg
[2020-11-14] MEDS ORDERED: ASPIRIN 81MG TABLET PO ONE (21:30)
[2020-11-14] MEDS ORDERED: FUROSEMIDE 40MG/4ML VIAL IV ONE (21:30)
[2020-11-14 21:44] LABS: BASOPHILS % 0.1 % (0.0-2.0); EOSINOPHILS % 3.5 % (0.0-5.0); HEMATOCRIT. 21.9 % (36.0-48.0); LYMPHOCYTES % 22.2 % (20.0-50.0); MEAN CORPUSCULAR HEMOGLOBIN 22.4 pg (28.0-32.0); MEAN CORPUSCULAR VOLUME 76.1 fL (81.0-99.0); MEAN PLATELET VOLUME 6.5 fl (7.4-10.4); MONOCYTES % 8.5 % (2.0-8.0); NEUTROPHILS % 65.7 % (40.0-76.0); PLATELET 236 x1000/uL (130-400); RED BLOOD CELL COUNT 2.88 mill/uL (4.2-5.4); RED CELL DISTRIBUTION WIDTH 20.5 % (11.6-14.6)
[2020-11-14 21:45] LABS: HEMOGLOBIN. 6.5 g/dL (12.0-16.0)
[2020-11-14 21:49] LABS: CHLORIDE 103 mEq/L (98-107)
[2020-11-15 09:57] VITALS: BP 137/77
[2020-11-15 10:33] VITALS: BP 137/77
[2020-11-15 11:55] VITALS: BP 165/66
[2020-11-15] MEDS ORDERED: ONDANSETRON HCL 4MG/2ML INJ IV PRN (12:00)
[2020-11-15] MEDS: FUROSEMIDE 40MG/4ML VIAL IVP SCH (12:19)
[2020-11-15] MEDS: ASPIRIN 81MG EC TABLET PO SCH (12:19)
[2020-11-15] MEDS: PANTOPRAZOLE SODIUM 40 MG/VIAL IV SCH (12:19)
[2020-11-15] MEDS: LISINOPRIL 20MG TABLET PO SCH (12:19)
[2020-11-15] MEDS: IPRATROPIUM/ALBUTEROL 0.5-3(2.5)MG/3ML NEB NEB SCH ×2 (12:43→20:52)
[2020-11-15] MEDS: HYDRALAZINE HCL 100MG TABLET PO SCH ×2 (14:27→16:52)
[2020-11-15] MEDS: SILDENAFIL CITRATE 20MG TABLET PO SCH ×2 (14:27→16:52)
[2020-11-15 16:00] VITALS: BP 103/55
[2020-11-15 16:33] LABS: CREATINE KINASE 158 IU/L (26-192)
[2020-11-15] MEDS: ACETAMINOPHEN 325MG TABLET PO PRN ×2 (17:00→21:33)
[2020-11-15] MEDS ORDERED: CLONIDINE 0.1MG TABLET PO SCH (17:00)
[2020-11-15 20:00] VITALS: BP 94/51
[2020-11-15 20:27] LABS: HEMATOCRIT 24.1 % (36.0-48.0); HEMOGLOBIN 7.3 g/dL (12.0-16.0)
[2020-11-15] MEDS ORDERED: ENOXAPARIN 40MG/0.4ML SYR SUBCUT SCH (21:00)
[2020-11-16] VITALS (13 sets, daily range): BP systolic 90–127; BP diastolic 48–67
[2020-11-16 00:07] LABS: CREATINE KINASE 170 IU/L (26-192); CREATINE KINASE MB FRACTION 2.6 ng/mL (0.5-3.6)
[2020-11-16] MEDS: IPRATROPIUM/ALBUTEROL 0.5-3(2.5)MG/3ML NEB NEB SCH ×6 (04:55→21:39)
[2020-11-16 05:33] LABS: BASOPHILS % 0.2 % (0.0-2.0); EOSINOPHILS % 3.7 % (0.0-5.0); HEMATOCRIT. 22.3 % (36.0-48.0); LYMPHOCYTES % 24.8 % (20.0-50.0); MEAN CORPUSCULAR VOLUME 76.4 fL (81.0-99.0); MEAN PLATELET VOLUME 7.4 fl (7.4-10.4); MONOCYTES % 8.6 % (2.0-8.0); NEUTROPHILS % 62.7 % (40.0-76.0); PLATELET 233 x1000/uL (130-400); RED BLOOD CELL COUNT 2.91 mill/uL (4.2-5.4); RED CELL DISTRIBUTION WIDTH 20.5 % (11.6-14.6)
[2020-11-16 05:40] LABS: HEMOGLOBIN. 6.7 g/dL (12.0-16.0)
[2020-11-16] MEDS: LISINOPRIL 20MG TABLET PO SCH (09:00)
[2020-11-16] MEDS: HYDRALAZINE HCL 100MG TABLET PO SCH ×3 (09:00→16:15)
[2020-11-16] MEDS: METOPROLOL TARTRATE 100MG TABLET PO SCH (09:00)
[2020-11-16] MEDS: SILDENAFIL CITRATE 20MG TABLET PO SCH ×3 (09:00→16:15)
[2020-11-16] MEDS: FUROSEMIDE 40MG/4ML VIAL IVP SCH (09:50)
[2020-11-16] MEDS: POTASSIUM CHLORIDE 20MEQ TABLET SR PO SCH (09:50)
[2020-11-16] MEDS: PANTOPRAZOLE SODIUM 40 MG/VIAL IV SCH ×2 (09:50→15:39)
[2020-11-16] MEDS: ASPIRIN 81MG EC TABLET PO SCH (09:50)
[2020-11-16 14:30] LABS: TOTAL IRON BINDING CAPACITY 368 ug/dL (250-450)
[2020-11-16] MEDS ORDERED: FAMOTIDINE 20MG/2ML VIAL IV SCH (21:00)
[2020-11-16 21:51] LABS: HEMATOCRIT 23.7 % (36.0-48.0); HEMOGLOBIN 7.5 g/dL (12.0-16.0)
[2020-11-17] VITALS (8 sets, daily range): BP systolic 103–133; BP diastolic 51–65
[2020-11-17] MEDS: IPRATROPIUM/ALBUTEROL 0.5-3(2.5)MG/3ML NEB NEB SCH ×6 (00:35→20:42)
[2020-11-17] MEDS: ACETAMINOPHEN 325MG TABLET PO PRN (06:21)
[2020-11-17 06:26] LABS: BASOPHILS % 0.3 % (0.0-2.0); EOSINOPHILS % 4.2 % (0.0-5.0); HEMATOCRIT. 25.6 % (36.0-48.0); HEMOGLOBIN. 7.9 g/dL (12.0-16.0); MEAN CORPUSCULAR HEMOGLOBIN 24.7 pg (28.0-32.0); MEAN CORPUSCULAR VOLUME 79.8 fL (81.0-99.0); MEAN PLATELET VOLUME 7.4 fl (7.4-10.4); MONOCYTES % 8.3 % (2.0-8.0); NEUTROPHILS % 64.2 % (40.0-76.0); PLATELET 221 x1000/uL (130-400); RED CELL DISTRIBUTION WIDTH 20.5 % (11.6-14.6)
[2020-11-17 07:08] LABS: CHLORIDE 101 mEq/L (98-107)
[2020-11-17] MEDS: PANTOPRAZOLE SODIUM 40 MG/VIAL IV SCH (09:10)
[2020-11-17] MEDS: FUROSEMIDE 40MG/4ML VIAL IVP SCH (09:10)
[2020-11-17] MEDS: POTASSIUM CHLORIDE 20MEQ TABLET SR PO SCH (09:10)
[2020-11-17] MEDS: ASPIRIN 81MG EC TABLET PO SCH (09:10)
[2020-11-17] MEDS: HYDRALAZINE HCL 100MG TABLET PO SCH ×3 (09:11→17:00)
[2020-11-17] MEDS: LISINOPRIL 20MG TABLET PO SCH (09:11)
[2020-11-17] MEDS: SILDENAFIL CITRATE 20MG TABLET PO SCH ×3 (09:11→17:00)
[2020-11-17] MEDS: METOPROLOL TARTRATE 100MG TABLET PO SCH (09:11)
[2020-11-17] MEDS ORDERED: MECLIZINE 12.5MG TABLET PO NR (21:00)
[2020-11-18] VITALS (7 sets, daily range): BP systolic 99–135; BP diastolic 48–63
[2020-11-18] MEDS: IPRATROPIUM/ALBUTEROL 0.5-3(2.5)MG/3ML NEB NEB SCH ×6 (02:19→20:33)
[2020-11-18] MEDS: ACETAMINOPHEN 325MG TABLET PO PRN ×2 (05:39→23:12)
[2020-11-18] MEDS: FUROSEMIDE 40MG/4ML VIAL IVP SCH (08:39)
[2020-11-18] MEDS: SILDENAFIL CITRATE 20MG TABLET PO SCH ×3 (08:39→17:00)
[2020-11-18] MEDS: ASPIRIN 81MG EC TABLET PO SCH (08:39)
[2020-11-18] MEDS: PANTOPRAZOLE SODIUM 40 MG/VIAL IV SCH (08:39)
[2020-11-18] MEDS: LISINOPRIL 20MG TABLET PO SCH (08:40)
[2020-11-18] MEDS: POTASSIUM CHLORIDE 20MEQ TABLET SR PO SCH (08:40)
[2020-11-18] MEDS ORDERED: METOPROLOL TARTRATE 25MG TABLET PO SCH (09:00)
[2020-11-18 12:07] LABS: BASOPHILS % 0.1 % (0.0-2.0); EOSINOPHILS % 3.9 % (0.0-5.0); HEMATOCRIT. 26.5 % (36.0-48.0); LYMPHOCYTES % 25.4 % (20.0-50.0); MEAN CORPUSCULAR HEMOGLOBIN 24.4 pg (28.0-32.0); MEAN CORPUSCULAR VOLUME 80.8 fL (81.0-99.0); MEAN PLATELET VOLUME 7.3 fl (7.4-10.4); MONOCYTES % 8.4 % (2.0-8.0); NEUTROPHILS % 62.2 % (40.0-76.0); PLATELET 222 x1000/uL (130-400); RED BLOOD CELL COUNT 3.29 mill/uL (4.2-5.4); RED CELL DISTRIBUTION WIDTH 20.5 % (11.6-14.6)
[2020-11-18 12:08] LABS: CHLORIDE 100 mEq/L (98-107)
[2020-11-18] MEDS ORDERED: LISI20TA31 PO (14:19)
[2020-11-18] MEDS ORDERED: METO25TA6 PO (14:19)
[2020-11-18] MEDS ORDERED: FURO40TA5 MT (14:53)
[2020-11-19] VITALS: BP 103/52
[2020-11-19] MEDS: IPRATROPIUM/ALBUTEROL 0.5-3(2.5)MG/3ML NEB NEB SCH ×6 (02:02→23:54)
[2020-11-19 04:00] VITALS: BP 115/67
[2020-11-19 08:00] VITALS: BP 116/59
[2020-11-19] MEDS: LISINOPRIL 5MG TABLET PO SCH (08:26)
[2020-11-19] MEDS: SILDENAFIL CITRATE 20MG TABLET PO SCH ×3 (08:26→16:25)
[2020-11-19] MEDS: ASPIRIN 81MG EC TABLET PO SCH (08:26)
[2020-11-19] MEDS: PANTOPRAZOLE 40MG DR TABLET PO SCH (08:26)
[2020-11-19] MEDS: POTASSIUM CHLORIDE 20MEQ TABLET SR PO SCH (08:26)
[2020-11-19] MEDS: METOPROLOL TARTRATE 25MG TABLET PO SCH (08:27)
[2020-11-19 12:00] VITALS: BP 139/70
[2020-11-19] MEDS: FUROSEMIDE 40MG TABLET PO SCH ×2 (12:46→20:36)
[2020-11-19 16:00] VITALS: BP 122/69
[2020-11-19 20:00] VITALS: BP 132/74
[2020-11-19] MEDS: ACETAMINOPHEN 325MG TABLET PO PRN (21:58)
[2020-11-20] VITALS: BP 116/61
[2020-11-20 04:00] VITALS: BP 125/70
[2020-11-20] MEDS: IPRATROPIUM/ALBUTEROL 0.5-3(2.5)MG/3ML NEB NEB SCH ×5 (04:24→22:09)
[2020-11-20] MEDS: FUROSEMIDE 40MG TABLET PO SCH ×2 (06:29→17:50)
[2020-11-20 08:00] VITALS: BP 122/62
[2020-11-20] MEDS: LISINOPRIL 5MG TABLET PO SCH (09:13)
[2020-11-20] MEDS: PANTOPRAZOLE 40MG DR TABLET PO SCH (09:14)
[2020-11-20] MEDS: ASPIRIN 81MG EC TABLET PO SCH (09:14)
[2020-11-20] MEDS: METOPROLOL TARTRATE 25MG TABLET PO SCH (09:14)
[2020-11-20] MEDS: POTASSIUM CHLORIDE 20MEQ TABLET SR PO SCH (09:14)
[2020-11-20] MEDS: SILDENAFIL CITRATE 20MG TABLET PO SCH ×3 (11:32→17:00)
[2020-11-20 12:00] VITALS: BP 124/81
[2020-11-20 16:00] VITALS: BP 99/42
[2020-11-20 20:00] VITALS: BP 106/70
[2020-11-21] VITALS: BP 110/51
[2020-11-21] MEDS: IPRATROPIUM/ALBUTEROL 0.5-3(2.5)MG/3ML NEB NEB SCH ×4 (00:36→11:49)
[2020-11-21 04:00] VITALS: BP 111/61
[2020-11-21] MEDS: FUROSEMIDE 40MG TABLET PO SCH (06:18)
[2020-11-21 08:00] VITALS: BP 105/50
[2020-11-21] MEDS: SILDENAFIL CITRATE 20MG TABLET PO SCH ×2 (08:53→12:51)
[2020-11-21] MEDS: LISINOPRIL 5MG TABLET PO SCH (09:00)
[2020-11-21] MEDS: ASPIRIN 81MG EC TABLET PO SCH (09:13)
[2020-11-21] MEDS: POTASSIUM CHLORIDE 20MEQ TABLET SR PO SCH (09:13)
[2020-11-21] MEDS: PANTOPRAZOLE 40MG DR TABLET PO SCH (09:13)
[2020-11-21] MEDS: METOPROLOL TARTRATE 25MG TABLET PO SCH (09:13)
[2020-11-21 12:00] VITALS: BP 108/48
== END 2020-11-21 14:10 | disposition home or self-care (01) | DRG 189 ==
LOC: ER 19:21 → 7EST 11-15 00:05 → EDBEDREQ 11-15 00:09 → EDBEDREQDT 11-15 00:09 → EDBEDREQTM 11-15 00:09 → ENRESERV 11-15 07:51
PROVIDERS: ADMIT Internal Medicine; ATTEND Internal Medicine
PROC: 30233N1 Transfusion of Nonautologous Red Blood Cells into Peripheral Vein, Percutaneous Approach (ICD-10-PCS; principal; 2020-11-15)
DX: J96.20 Acute and chronic respiratory failure, unspecified whether with hypoxia or hypercapnia (principal); I50.33 Acute on chronic diastolic (congestive) heart failure; Z68.43 Body mass index [BMI] 50.0-59.9, adult; N92.0 Excessive and frequent menstruation with regular cycle; D64.9 Anemia, unspecified; I11.0 Hypertensive heart disease with heart failure; G47.33 Obstructive sleep apnea (adult) (pediatric); E66.01 Morbid (severe) obesity due to excess calories; J44.9 Chronic obstructive pulmonary disease, unspecified; M17.0 Bilateral primary osteoarthritis of knee; Z85.42 Personal history of malignant neoplasm of other parts of uterus; Z88.8 Allergy status to other drugs, medicaments and biological substances; Z79.899 Other long term (current) drug therapy; Z79.82 Long term (current) use of aspirin; Z92.3 Personal history of irradiation
CPT/HCPCS: 36415; 71045; 80048; 80053; 82270; 82550; 82553; 83540; 83550; 83880; 84484; 85014; 85018; 85025; 86850; 86900; 86920; 93005; 93970; 94640; 99291; C9113; J1940; J7040; J8597; P9016

== ENCOUNTER 2021-02-02 21:10 | Inpatient (IN) | payer MEDICARE, MEDICAID ==
[~2021-02-02] VITALS: Ht 170.2 cm; Wt 168.7 kg
[~2021-02-02 21:10] MED LIST changes: -AZIT250T12 PO; -BENA40TA9 PO; -CLON0.1T PO; -FERR325T6 PO; -FLUT1BLS3 INH; +FURO40TA5 MT; -HYDR100T26 PO; -IPRA3AMP9 HHN; -IPRA3AMP9 NEB; +LISI20TA31 PO; -MEGE40TA8 PO; -METO100T16 PO; +METO25TA6 PO; -P20 MT; -POTA20TA82 PO
[2021-02-02 23:49] LABS: BASOPHILS % 0.2 % (0.0-2.0); EOSINOPHILS % 9.6 % (0.0-5.0); LYMPHOCYTES % 20.1 % (20.0-50.0); MEAN CORPUSCULAR HEMOGLOBIN 24.3 pg (28.0-32.0); MEAN PLATELET VOLUME 6.6 fl (7.4-10.4); MONOCYTES % 7.4 % (2.0-8.0); NEUTROPHILS % 62.7 % (40.0-76.0); PLATELET 282 x1000/uL (130-400); RED BLOOD CELL COUNT 2.62 mill/uL (4.2-5.4); RED CELL DISTRIBUTION WIDTH 18.6 % (11.6-14.6)
[2021-02-03] LABS: HEMATOCRIT. 20.2 % (36.0-48.0); HEMOGLOBIN. 6.4 g/dL (12.0-16.0)
[2021-02-03] MEDS ORDERED: ALBUTEROL (0.083%) 2.5MG/3ML NEB HHN ONE ×2 (00:45→04:30)
[2021-02-03 02:19] LABS: CHLORIDE 100 mEq/L (98-107)
[2021-02-03] MEDS ORDERED: ACETAMINOPHEN WITH CODEINE 300/30MG TABLET PO ONE (03:45)
[2021-02-03] MEDS ORDERED: FUROSEMIDE 40MG/4ML VIAL IVP ONE (04:30)
[2021-02-03 08:10] VITALS: BP 126/70
[2021-02-03] MEDS ORDERED: ONDANSETRON HCL 4MG/2ML INJ IV PRN (10:15)
[2021-02-03] MEDS ORDERED: PNEUMOCOCCAL 23-VAL P-SAC VAC 0.5 ML IM ONE (11:30)
[2021-02-03] MEDS ORDERED: INFLUENZA VACCINE 05/PF 0.5 ML SYRINGE IM ONE (11:30)
[2021-02-03] MEDS: IPRATROPIUM/ALBUTEROL 0.5-3(2.5)MG/3ML NEB HHN SCH ×2 (11:41→16:44)
[2021-02-03] MEDS ORDERED: T4 PO (11:44)
[2021-02-03] MEDS ORDERED: APIX5TAB PO (11:44)
[2021-02-03 11:47] LABS: HEMATOCRIT 23.8 % (36.0-48.0); HEMOGLOBIN 7.3 g/dL (12.0-16.0)
[2021-02-03 11:52] LABS: CHLORIDE 99 mEq/L (98-107)
[2021-02-03 12:00] VITALS: BP 160/61
[2021-02-03] MEDS: FUROSEMIDE 40MG/4ML VIAL IVP SCH (12:44)
[2021-02-03] MEDS: FAMOTIDINE 20MG TABLET PO SCH ×2 (12:45→21:16)
[2021-02-03] MEDS: METHYLPREDNISOLONE SOD SUCC 40 MG/ML VIAL IV SCH ×2 (12:45→17:36)
[2021-02-03 16:00] VITALS: BP 130/77
[2021-02-03] MEDS: ACETAMINOPHEN 325MG TABLET PO PRN ×2 (17:36→23:42)
[2021-02-03] MEDS ORDERED: LORAZEPAM 0.5MG TABLET PO PRN (19:00)
[2021-02-03 20:00] VITALS: BP 123/60
[2021-02-03] MEDS ORDERED: ALBUTEROL 6.7GM HFA INHALER ORI SCH (20:00)
[2021-02-03] MEDS: ALBUTEROL (0.083%) 2.5MG/3ML NEB HHN SCH (21:03)
[2021-02-04] VITALS (10 sets, daily range): BP systolic 113–132; BP diastolic 55–75
[2021-02-04] MEDS: ALBUTEROL (0.083%) 2.5MG/3ML NEB HHN SCH ×6 (00:42→21:59)
[2021-02-04] MEDS: METHYLPREDNISOLONE SOD SUCC 40 MG/ML VIAL IV SCH ×2 (01:23→09:02)
[2021-02-04] MEDS: ACETAMINOPHEN 325MG TABLET PO PRN (05:51)
[2021-02-04] MEDS: FUROSEMIDE 40MG/4ML VIAL IVP SCH (08:57)
[2021-02-04] MEDS: FAMOTIDINE 20MG TABLET PO SCH ×2 (08:57→21:56)
[2021-02-04 10:35] LABS: HEMATOCRIT 22.5 % (36.0-48.0)
[2021-02-04 17:12] LABS: HEMATOCRIT 23.3 % (36.0-48.0)
[2021-02-05] VITALS (7 sets, daily range): BP systolic 98–153; BP diastolic 56–83
[2021-02-05 00:13] LABS: HEMOGLOBIN 7.7 g/dL (12.0-16.0)
[2021-02-05] MEDS: METHYLPREDNISOLONE SOD SUCC 40 MG/ML VIAL IV SCH ×4 (02:00→17:46)
[2021-02-05] MEDS: ALBUTEROL (0.083%) 2.5MG/3ML NEB HHN SCH ×6 (02:45→20:34)
[2021-02-05] MEDS: FUROSEMIDE 40MG/4ML VIAL IVP SCH (09:08)
[2021-02-05] MEDS: FAMOTIDINE 20MG TABLET PO SCH ×2 (09:08→21:19)
[2021-02-05] MEDS ORDERED: ALBUTEROL (0.083%) 2.5MG/3ML NEB HHN PRN (15:00)
[2021-02-05 18:51] LABS: CLARITY URINE CLOUDY (CLEAR); COLOR URINE RED (YELLOW); KETONES URINE NEGATIVE (NEGATIVE); LEUKOCYTE ESTERASE URINE 2+ (NEGATIVE); NITRITE URINE NEGATIVE (NEGATIVE); OCCULT BLOOD URINE 3+ (NEGATIVE); PROTEIN URINE 2+ (NEGATIVE); SPECIFIC GRAVITY URINE 1.021 (1.005-1.030); UROBILINOGEN URINE 0.2 E.U./dL (0.2-1.0)
[2021-02-06] MEDS: ALBUTEROL (0.083%) 2.5MG/3ML NEB HHN SCH ×7 (00:44→23:15)
[2021-02-06] MEDS: METHYLPREDNISOLONE SOD SUCC 40 MG/ML VIAL IV SCH ×3 (01:07→18:02)
[2021-02-06 04:00] VITALS: BP 134/61
[2021-02-06 06:51] LABS: HEMATOCRIT. 24.5 % (36.0-48.0); HEMOGLOBIN. 7.6 g/dL (12.0-16.0); MEAN CORPUSCULAR HEMOGLOBIN 24.7 pg (28.0-32.0); MEAN PLATELET VOLUME 7.1 fl (7.4-10.4); PLATELET 253 x1000/uL (130-400); RED BLOOD CELL COUNT 3.06 mill/uL (4.2-5.4); RED CELL DISTRIBUTION WIDTH 19.1 % (11.6-14.6)
[2021-02-06 06:56] LABS: CHLORIDE 98 mEq/L (98-107)
[2021-02-06 08:00] VITALS: BP 153/80
[2021-02-06] MEDS: FAMOTIDINE 20MG TABLET PO SCH ×2 (09:10→21:17)
[2021-02-06] MEDS: FUROSEMIDE 40MG/4ML VIAL IVP SCH (09:10)
[2021-02-06 12:00] VITALS: BP 138/62
[2021-02-06] MEDS ORDERED: FERR325T23 MT (12:16)
[2021-02-06] MEDS ORDERED: P20 MT ×2 (12:16)
[2021-02-06] MEDS ORDERED: DOCU250C14 MT (12:16)
[2021-02-06 13:41] LABS: PLATELET ESTIMATE NORMAL
[2021-02-06] MEDS: DOCUSATE SODIUM 250MG CAPSULE PO SCH (14:00)
[2021-02-06] MEDS: LEVOFLOXACIN 500MG TABLET PO SCH (15:11)
[2021-02-06 16:00] VITALS: BP 142/103
[2021-02-06] MEDS: FERROUS SULFATE 325MG TABLET PO SCH (18:02)
[2021-02-06 20:00] VITALS: BP 148/75
[2021-02-06] MEDS: GUAIFENESIN 600MG ER TABLET PO SCH (21:17)
[2021-02-07] VITALS (7 sets, daily range): BP systolic 115–146; BP diastolic 45–80
[2021-02-07] MEDS: METHYLPREDNISOLONE SOD SUCC 40 MG/ML VIAL IV SCH ×3 (02:30→18:00)
[2021-02-07] MEDS: ALBUTEROL (0.083%) 2.5MG/3ML NEB HHN SCH ×7 (03:03→23:55)
[2021-02-07] MEDS: DOCUSATE SODIUM 250MG CAPSULE PO SCH (10:05)
[2021-02-07] MEDS: FAMOTIDINE 20MG TABLET PO SCH ×2 (10:06→20:51)
[2021-02-07] MEDS: FERROUS SULFATE 325MG TABLET PO SCH ×3 (10:06→17:40)
[2021-02-07] MEDS: FUROSEMIDE 40MG/4ML VIAL IVP SCH (10:06)
[2021-02-07] MEDS: GUAIFENESIN 600MG ER TABLET PO SCH ×2 (10:06→20:50)
[2021-02-07] MEDS: LEVOFLOXACIN 500MG TABLET PO SCH (10:06)
[2021-02-07] MEDS ORDERED: GUAI600T26 MT (12:38)
[2021-02-07] MEDS ORDERED: LEVO500T89 MT ×2 (12:38)
[2021-02-07] MEDS ORDERED: ALBU18HF2 IH (12:38)
[2021-02-08] VITALS: BP 145/74
[2021-02-08] MEDS: METHYLPREDNISOLONE SOD SUCC 40 MG/ML VIAL IV SCH (02:38)
[2021-02-08 04:00] VITALS: BP 138/70
[2021-02-08] MEDS: ALBUTEROL (0.083%) 2.5MG/3ML NEB HHN SCH ×2 (04:13→08:14)
[2021-02-08 08:00] VITALS: BP 132/71
== END 2021-02-08 09:30 | disposition home or self-care (01) | DRG 760 ==
LOC: ER 21:10 → 8WST 02-03 04:27 → EDBEDREQTM 02-03 04:30 → EDBEDREQ 02-03 04:30 → EDBEDREQSVC 02-03 04:30 → ENRESERV 02-03 07:22
PROVIDERS: ADMIT Internal Medicine; ATTEND Internal Medicine
PROC: 30233N1 Transfusion of Nonautologous Red Blood Cells into Peripheral Vein, Percutaneous Approach (ICD-10-PCS; principal; 2021-02-03)
DX: N93.9 Abnormal uterine and vaginal bleeding, unspecified (principal); I50.33 Acute on chronic diastolic (congestive) heart failure; J45.901 Unspecified asthma with (acute) exacerbation; E44.0 Moderate protein-calorie malnutrition; Z68.43 Body mass index [BMI] 50.0-59.9, adult; R93.89 Abnormal findings on diagnostic imaging of other specified body structures; D50.0 Iron deficiency anemia secondary to blood loss (chronic); E66.9 Obesity, unspecified; I11.0 Hypertensive heart disease with heart failure; I27.20 Pulmonary hypertension, unspecified; Z85.42 Personal history of malignant neoplasm of other parts of uterus; J44.9 Chronic obstructive pulmonary disease, unspecified; Z71.3 Dietary counseling and surveillance
CPT/HCPCS: 36415; 71045; 76830; 76856; 80048; 80053; 81003; 83880; 85014; 85018; 85025; 86850; 86900; 86920; 90686; 90732; 93970; 94640; 97162; 99291; C1893; J1940; J2920; J7040; P9021

== ENCOUNTER 2021-02-18 11:24 | Inpatient (IN) | payer MEDICARE, MEDICAID ==
[~2021-02-18] VITALS: Ht 170.2 cm; Wt 162.0 kg
[~2021-02-18 11:24] MED LIST changes: +ALBU18HF2 IH; -ASPI-1497 PO; -DOCU-286 PO; +DOCU250C14 MT; +FERR325T23 MT; +GUAI600T26 MT; +T4 PO
[2021-02-18 12:44] LABS: HEMATOCRIT. 33.2 % (36.0-48.0); HEMOGLOBIN. 9.4 g/dL (12.0-16.0); MEAN CORPUSCULAR HEMOGLOBIN 24.4 pg (28.0-32.0); MEAN CORPUSCULAR VOLUME 85.7 fL (81.0-99.0); PLATELET 188 x1000/uL (130-400); RED BLOOD CELL COUNT 3.87 mill/uL (4.2-5.4); RED CELL DISTRIBUTION WIDTH 19.9 % (11.6-14.6)
[2021-02-18 12:45] LABS: CHLORIDE 107 mEq/L (98-107)
[2021-02-18 12:51] LABS: ETHANOL BLOOD < 10 mg/dL
[2021-02-18 13:11] LABS: PLATELET ESTIMATE NORMAL
[2021-02-18] MEDS ORDERED: FUROSEMIDE 40MG/4ML VIAL IVP ONE (13:15)
[2021-02-18 16:18] LABS: *AMPHETAMINES SCREEN URINE NEGATIVE (NEGATIVE); *COCAINE SCREEN URINE NEGATIVE (NEGATIVE); CANNABINOID URINE SCREEN NEGATIVE (NEGATIVE); OPIATES URINE SCREEN PRESUMTIVE POSITIVE (NEGATIVE); PHENCYCLIDINE URINE SCREEN NEGATIVE (NEGATIVE)
[2021-02-18 16:19] LABS: METHADONE URINE SCREEN NEGATIVE (NEGATIVE)
[2021-02-18 16:20] LABS: *BARBITURATES SCREEN URINE NEGATIVE (NEGATIVE)
[2021-02-18 16:22] LABS: *BENZODIAZEPINES SCREEN URINE NEGATIVE (NEGATIVE)
[2021-02-18 18:31] LABS: BG BASE EXCESS 11.6 mmol/L (-2.0-2.0); BG CARBOXYHEMOGLOBIN 0.3 % (0.5-1.5); BG DEOXYHEMOGLOBIN 1.7 % (0.0-5.0); BG FRACTION INSPIRED OXYGEN 36; BG HCO3 ACT 40.1 mmol/L (22.0-26.0); BG METHEMOGLOBIN 0.3 % (0.0-1.5); BG OXYGEN SATURATION 98.3 % (92.0-98.5); BG OXYHEMOGLOBIN 97.7 % (94.0-97.0); BG PCO2 80.8 mmHg (35.0-45.0); BG PH 7.314 (7.350-7.450); BG PO2 117.3 mmHg (75.0-100.0); BG SAMPLE SITE RIGHT RADIAL; BG TOTAL HEMOGLOBIN 9.9 g/dL (12.0-18.0); BG VENT MODE NASAL CANNULA
[2021-02-19] MEDS: IPRATROPIUM/ALBUTEROL 0.5-3(2.5)MG/3ML NEB HHN SCH ×4 (01:18→20:45)
[2021-02-19 08:48] VITALS: BP 136/56
[2021-02-19] MEDS ORDERED: NALOXONE HCL 0.4MG/ML VIAL IV PRN (10:45)
[2021-02-19 10:55] LABS: BG BASE EXCESS 11.6 mmol/L (-2.0-2.0); BG CARBOXYHEMOGLOBIN 0.3 % (0.5-1.5); BG FRACTION INSPIRED OXYGEN 28; BG HCO3 ACT 40.7 mmol/L (22.0-26.0); BG METHEMOGLOBIN 0.4 % (0.0-1.5); BG OXYHEMOGLOBIN 95.3 % (94.0-97.0); BG PCO2 88.2 mmHg (35.0-45.0); BG PH 7.282 (7.350-7.450); BG PO2 85.7 mmHg (75.0-100.0); BG SAMPLE SITE RIGHT RADIAL; BG TOTAL HEMOGLOBIN 9.4 g/dL (12.0-18.0); BG VENT MODE NASAL CANNULA
[2021-02-19 12:00] VITALS: BP 118/62
[2021-02-19] MEDS: METHYLPREDNISOLONE SOD SUCC 40 MG/ML VIAL IV SCH ×2 (13:05→22:26)
[2021-02-19 15:48] VITALS: BP 120/60
[2021-02-19] MEDS: SILDENAFIL CITRATE 20MG TABLET PO SCH ×2 (17:37→22:26)
[2021-02-19] MEDS: PANTOPRAZOLE 40MG DR TABLET PO SCH (17:38)
[2021-02-19] MEDS: LISINOPRIL 5MG TABLET PO SCH (17:38)
[2021-02-19] MEDS: METOPROLOL TARTRATE 25MG TABLET PO SCH (17:38)
[2021-02-19 20:00] VITALS: BP 132/62
[2021-02-20] VITALS: BP 113/62
[2021-02-20] MEDS: IPRATROPIUM/ALBUTEROL 0.5-3(2.5)MG/3ML NEB HHN SCH ×5 (04:39→20:24)
[2021-02-20 06:13] LABS: CHLORIDE 102 mEq/L (98-107)
[2021-02-20] MEDS: PANTOPRAZOLE 40MG DR TABLET PO SCH (06:15)
[2021-02-20] MEDS: SILDENAFIL CITRATE 20MG TABLET PO SCH ×3 (06:16→21:14)
[2021-02-20 06:35] LABS: HEMATOCRIT. 26.3 % (36.0-48.0); MEAN CORPUSCULAR HEMOGLOBIN 24.8 pg (28.0-32.0); MEAN CORPUSCULAR VOLUME 81.6 fL (81.0-99.0); MEAN PLATELET VOLUME 8.1 fl (7.4-10.4); PLATELET 159 x1000/uL (130-400); RED BLOOD CELL COUNT 3.22 mill/uL (4.2-5.4); RED CELL DISTRIBUTION WIDTH 20.1 % (11.6-14.6)
[2021-02-20 08:26] VITALS: BP 102/51
[2021-02-20] MEDS: LISINOPRIL 5MG TABLET PO SCH (09:00)
[2021-02-20] MEDS: FUROSEMIDE 40MG TABLET PO SCH (09:43)
[2021-02-20] MEDS: METHYLPREDNISOLONE SOD SUCC 40 MG/ML VIAL IV SCH ×2 (09:43→21:14)
[2021-02-20] MEDS: METOPROLOL TARTRATE 25MG TABLET PO SCH (09:44)
[2021-02-20] MEDS: HYDROCODONE/ACETAMINOPHEN 5/325MG TABLET PO PRN (09:45)
[2021-02-20 12:17] VITALS: BP 116/45
[2021-02-20 12:47] LABS: PLATELET ESTIMATE NORMAL
[2021-02-20 15:32] VITALS: BP 105/47
[2021-02-20 20:00] VITALS: BP 113/46
[2021-02-21] VITALS: BP 105/53
[2021-02-21] MEDS: IPRATROPIUM/ALBUTEROL 0.5-3(2.5)MG/3ML NEB HHN SCH ×6 (00:18→20:06)
[2021-02-21 04:00] VITALS: BP 125/55
[2021-02-21 06:25] LABS: HEMATOCRIT. 24.7 % (36.0-48.0); HEMOGLOBIN. 7.9 g/dL (12.0-16.0); MEAN CORPUSCULAR HEMOGLOBIN 25.9 pg (28.0-32.0); MEAN CORPUSCULAR VOLUME 81.2 fL (81.0-99.0); MEAN PLATELET VOLUME 7.9 fl (7.4-10.4); PLATELET 159 x1000/uL (130-400); RED BLOOD CELL COUNT 3.04 mill/uL (4.2-5.4); RED CELL DISTRIBUTION WIDTH 20.1 % (11.6-14.6)
[2021-02-21] MEDS: SILDENAFIL CITRATE 20MG TABLET PO SCH ×3 (06:40→21:31)
[2021-02-21] MEDS: PANTOPRAZOLE 40MG DR TABLET PO SCH (06:40)
[2021-02-21 07:04] LABS: CHLORIDE 99 mEq/L (98-107)
[2021-02-21 07:58] VITALS: BP 124/99
[2021-02-21] MEDS: METOPROLOL TARTRATE 25MG TABLET PO SCH (08:29)
[2021-02-21] MEDS: METHYLPREDNISOLONE SOD SUCC 40 MG/ML VIAL IV SCH ×2 (08:29→21:22)
[2021-02-21] MEDS: FUROSEMIDE 40MG TABLET PO SCH (08:29)
[2021-02-21] MEDS: LISINOPRIL 5MG TABLET PO SCH (08:29)
[2021-02-21 09:23] LABS: BG CARBOXYHEMOGLOBIN 0.3 % (0.5-1.5); BG DEOXYHEMOGLOBIN 3.3 % (0.0-5.0); BG HCO3 ACT 35.1 mmol/L (22.0-26.0); BG METHEMOGLOBIN 0.2 % (0.0-1.5); BG OXYGEN SATURATION 96.7 % (92.0-98.5); BG OXYHEMOGLOBIN 96.2 % (94.0-97.0); BG PCO2 59.8 mmHg (35.0-45.0); BG PH 7.386 (7.350-7.450); BG PO2 97.3 mmHg (75.0-100.0); BG SAMPLE SITE RIGHT RADIAL; BG TOTAL HEMOGLOBIN 6.9 g/dL (12.0-18.0); BG VENT MODE NASAL CANNULA
[2021-02-21 12:15] VITALS: BP 119/68
[2021-02-21 15:08] LABS: PLATELET ESTIMATE NORMAL
[2021-02-21 16:00] VITALS: BP 104/40
[2021-02-21 20:00] VITALS: BP 107/45
[2021-02-22] VITALS: BP 131/54
[2021-02-22 04:00] VITALS: BP 142/72
[2021-02-22] MEDS: IPRATROPIUM/ALBUTEROL 0.5-3(2.5)MG/3ML NEB HHN SCH ×5 (04:09→20:53)
[2021-02-22] MEDS: LISINOPRIL 5MG TABLET PO SCH (09:00)
[2021-02-22] MEDS: METOPROLOL TARTRATE 25MG TABLET PO SCH (09:00)
[2021-02-22] MEDS: METHYLPREDNISOLONE SOD SUCC 40 MG/ML VIAL IV SCH ×2 (11:03→21:08)
[2021-02-22] MEDS: FUROSEMIDE 40MG TABLET PO SCH (11:04)
[2021-02-22 11:07] VITALS: BP 104/46
[2021-02-22] MEDS: PANTOPRAZOLE 40MG DR TABLET PO SCH (12:32)
[2021-02-22] MEDS: SILDENAFIL CITRATE 20MG TABLET PO SCH ×2 (15:04→21:09)
[2021-02-22 16:00] VITALS: BP 111/62
[2021-02-22 20:00] VITALS: BP 129/60
[2021-02-22] MEDS: HYDROCODONE/ACETAMINOPHEN 5/325MG TABLET PO PRN (21:08)
[2021-02-23] VITALS: BP 118/58
[2021-02-23] MEDS: IPRATROPIUM/ALBUTEROL 0.5-3(2.5)MG/3ML NEB HHN SCH ×5 (01:00→15:49)
[2021-02-23 03:32] VITALS: BP 116/54
[2021-02-23] MEDS: PANTOPRAZOLE 40MG DR TABLET PO SCH (06:32)
[2021-02-23] MEDS: SILDENAFIL CITRATE 20MG TABLET PO SCH ×2 (06:40→13:29)
[2021-02-23 08:00] VITALS: BP 127/54
[2021-02-23] MEDS: METOPROLOL TARTRATE 25MG TABLET PO SCH (09:00)
[2021-02-23] MEDS: LISINOPRIL 5MG TABLET PO SCH (09:00)
[2021-02-23] MEDS: METHYLPREDNISOLONE SOD SUCC 40 MG/ML VIAL IV SCH (09:06)
[2021-02-23] MEDS: FUROSEMIDE 40MG TABLET PO SCH (09:08)
[2021-02-23 12:00] VITALS: BP 127/54
[2021-02-23 14:11] VITALS: BP 127/54
[2021-02-23 16:00] VITALS: BP 134/57
== END 2021-02-23 17:25 | disposition home or self-care (01) | DRG 190 ==
LOC: ER 11:24 → MICUSO 15:30 → EDBEDREQ 15:34 → EDBEDREQTM 15:34 → 6WST 02-19 09:03 → CANBEDREQ 02-19 12:00
PROVIDERS: ADMIT Internal Medicine; ATTEND Internal Medicine
PROC: 5A09357 Assistance with Respiratory Ventilation, Less than 24 Consecutive Hours, Continuous Positive Airway Pressure (ICD-10-PCS; principal; 2021-02-18)
PROC: 5A09357 Assistance with Respiratory Ventilation, Less than 24 Consecutive Hours, Continuous Positive Airway Pressure (ICD-10-PCS; 2021-02-19)
PROC: 5A09357 Assistance with Respiratory Ventilation, Less than 24 Consecutive Hours, Continuous Positive Airway Pressure (ICD-10-PCS; 2021-02-20)
PROC: 5A09357 Assistance with Respiratory Ventilation, Less than 24 Consecutive Hours, Continuous Positive Airway Pressure (ICD-10-PCS; 2021-02-21)
PROC: 5A09357 Assistance with Respiratory Ventilation, Less than 24 Consecutive Hours, Continuous Positive Airway Pressure (ICD-10-PCS; 2021-02-23)
DX: J44.1 Chronic obstructive pulmonary disease with (acute) exacerbation (principal); J96.22 Acute and chronic respiratory failure with hypercapnia; Z68.43 Body mass index [BMI] 50.0-59.9, adult; E66.2 Morbid (severe) obesity with alveolar hypoventilation; E87.2 Acidosis; I50.32 Chronic diastolic (congestive) heart failure; I11.0 Hypertensive heart disease with heart failure; D72.829 Elevated white blood cell count, unspecified; I27.20 Pulmonary hypertension, unspecified; Z20.822 Contact with and (suspected) exposure to COVID-19; C55 Malignant neoplasm of uterus, part unspecified; N93.9 Abnormal uterine and vaginal bleeding, unspecified; R93.89 Abnormal findings on diagnostic imaging of other specified body structures; Z88.6 Allergy status to analgesic agent; Z88.8 Allergy status to other drugs, medicaments and biological substances; Z79.1 Long term (current) use of non-steroidal anti-inflammatories (NSAID); Z79.899 Other long term (current) drug therapy; Z79.84 Long term (current) use of oral hypoglycemic drugs; Z85.42 Personal history of malignant neoplasm of other parts of uterus
CPT/HCPCS: 36415; 36600; 71045; 80048; 80053; 80305; 80320; 82375; 82805; 83605; 83880; 84484; 85025; 87426; 87804; 93005; 94640; 94660; 97166; 99291; C1893; J1940; J2920; G0480

== ENCOUNTER 2021-09-13 16:01 | Emergency (ER) | payer MEDICARE, MEDICAID ==
[~2021-09-13] VITALS: Ht 165.1 cm; Wt 136.0 kg
[2021-09-13 17:09] LABS: EOSINOPHILS % 5.9 % (0.0-5.0); LYMPHOCYTES % 24.1 % (20.0-50.0); MEAN CORPUSCULAR VOLUME 75.4 fL (81.0-99.0); MEAN PLATELET VOLUME 6.7 fl (7.4-10.4); MONOCYTES % 5.9 % (2.0-8.0); NEUTROPHILS % 63.1 % (40.0-76.0); PLATELET 378 x1000/uL (130-400); RED BLOOD CELL COUNT 2.18 mill/uL (4.2-5.4)
[2021-09-13] MEDS: PANTOPRAZOLE SODIUM 40 MG/VIAL IV STA ×2 (17:10→17:22)
[2021-09-13 17:14] LABS: CHLORIDE 99 mEq/L (98-107)
[2021-09-13 17:18] LABS: INR 1.1; PARTIAL THROMBOPLASTIN TIME 21.7 sec (23.4-31.0); PROTHROMBIN TIME 11.3 sec (9.6-11.0)
[2021-09-13 17:22] LABS: HEMATOCRIT. 16.4 % (36.0-48.0); HEMOGLOBIN. 4.8 g/dL (12.0-16.0)
[2021-09-13 17:27] LABS: TOTAL IRON BINDING CAPACITY 505 ug/dL (250-450)
[2021-09-13] MEDS ORDERED: SODIUM CHLORIDE 0.9% 500 ML IV ONE (20:45)
[2021-09-13 23:38] VITALS: BP 113/49
== END 2021-09-13 23:25 | disposition short-term general hospital (02) ==
LOC: ER 16:01
DX: D64.9 Anemia, unspecified (principal); N93.8 Other specified abnormal uterine and vaginal bleeding; J44.9 Chronic obstructive pulmonary disease, unspecified; I11.0 Hypertensive heart disease with heart failure; I50.9 Heart failure, unspecified; Z85.9 Personal history of malignant neoplasm, unspecified; Z79.899 Other long term (current) drug therapy; Z20.822 Contact with and (suspected) exposure to COVID-19
CPT/HCPCS: 36415; 80053; 83540; 83550; 83690; 85025; 85610; 85730; 86850; 86900; 86901; 86920; 87426; 99285; C9113; C9803; J7040; P9016

== ENCOUNTER 2022-03-23 13:16 | Inpatient (IN) | payer MEDICARE, MEDICAID ==
[~2022-03-23] VITALS: Ht 167.6 cm; Wt 102.5 kg
[~2022-03-23 13:16] MED LIST changes: +GABA-529 MT; +HYDR-4009 PO; +MED4 MT
[2022-03-23] MEDS ORDERED: IPRATROPIUM BROMIDE (0.02%) 0.5MG/2.5ML NEB HHN STA ×2 (14:05→16:28)
[2022-03-23] MEDS ORDERED: ALBUTEROL (0.083%) 2.5MG/3ML NEB HHN STA ×2 (14:05→16:28)
[2022-03-23] MEDS ORDERED: METHYLPREDNISOLONE SOD SUCC 125 MG/2 ML VIAL IV STA (14:05)
[2022-03-23] MEDS ORDERED: NITROGLYCERIN 0.4MG TABLET SL SL PRN (14:15)
[2022-03-23 15:27] LABS: HEMATOCRIT. 28.5 % (36.0-48.0); HEMOGLOBIN. 8.8 g/dL (12.0-16.0); MEAN CORPUSCULAR HEMOGLOBIN 25.8 pg (28.0-32.0); MEAN CORPUSCULAR VOLUME 83.7 fL (81.0-99.0); MEAN PLATELET VOLUME 7.5 fl (7.4-10.4); PLATELET 213 x1000/uL (130-400); RED BLOOD CELL COUNT 3.41 mill/uL (4.2-5.4); RED CELL DISTRIBUTION WIDTH 21.3 % (11.6-14.6)
[2022-03-23 15:29] LABS: CHLORIDE 92 mEq/L (98-107)
[2022-03-23] MEDS ORDERED: MORPHINE SULFATE 4 MG/ML CPJ (NOT FOR IM USE) IV ONE (16:30)
[2022-03-23 17:02] LABS: BG BASE EXCESS 20.8 mmol/L (-2.0-2.0); BG CARBOXYHEMOGLOBIN 0.3 % (0.5-1.5); BG DEOXYHEMOGLOBIN 0.5 % (0.0-5.0); BG HCO3 ACT 49.7 mmol/L (22.0-26.0); BG METHEMOGLOBIN 0.3 % (0.0-1.5); BG OXYGEN SATURATION 99.5 % (92.0-98.5); BG OXYHEMOGLOBIN 98.9 % (94.0-97.0); BG PCO2 89.2 mmHg (35.0-45.0); BG PH 7.364 (7.350-7.450); BG PO2 304.4 mmHg (75.0-100.0); BG SAMPLE SITE RIGHT RADIAL; BG TOTAL HEMOGLOBIN 9.9 g/dL (12.0-18.0); BG VENT MODE MASK - NRB
[2022-03-23 17:16] LABS: PLATELET ESTIMATE NORMAL
[2022-03-23] MEDS ORDERED: ALBUTEROL (0.083%) 2.5MG/3ML NEB ONE (18:02)
[2022-03-23] MEDS ORDERED: IPRATROPIUM BROMIDE (0.02%) 0.5MG/2.5ML NEB ONE (18:03)
[2022-03-23] MEDS ORDERED: NALOXONE HCL 0.4MG/ML VIAL IV PRN (23:45)
[2022-03-23] MEDS: HYDROCODONE/ACETAMINOPHEN 5/325MG TABLET PO PRN (23:58)
[2022-03-24] VITALS (7 sets, daily range): BP systolic 109–151; BP diastolic 68–94
[2022-03-24] MEDS: HYDROCODONE/ACETAMINOPHEN 5/325MG TABLET PO PRN ×3 (05:23→23:56)
[2022-03-24] MEDS ORDERED: MORPHINE SULFATE 2 MG/ML CPJ (NOT FOR IM USE) IV PRN (12:15)
[2022-03-24] MEDS ORDERED: HYDROCODONE/ACETAMINOPHEN 5/325MG TABLET PO PRN (12:15)
[2022-03-24] MEDS ORDERED: DEXTROSE 50% WATER 50ML SYRINGE IV PRN (12:15)
[2022-03-24] MEDS: BLOOD SUGAR DIAGNOSTIC STRIP TEST SCH ×2 (12:30→17:30)
[2022-03-24] MEDS: INSULIN LISPRO 100 UNITS/ML SUBCUT SCH ×2 (12:56→17:37)
[2022-03-24] MEDS ORDERED: ALBUTEROL (0.083%) 2.5MG/3ML NEB HHN PRN (13:00)
[2022-03-24] MEDS ORDERED: METHYLPREDNISOLONE SOD SUCC 125 MG/2 ML VIAL IV SCH (14:00)
[2022-03-24 14:24] LABS: BG BASE EXCESS 19.6 mmol/L (-2.0-2.0); BG CARBOXYHEMOGLOBIN 0.9 % (0.5-1.5); BG DEOXYHEMOGLOBIN 2.4 % (0.0-5.0); BG FRACTION INSPIRED OXYGEN 35; BG HCO3 ACT 46.7 mmol/L (22.0-26.0); BG METHEMOGLOBIN 0.3 % (0.0-1.5); BG OXYGEN SATURATION 97.6 % (92.0-98.5); BG OXYHEMOGLOBIN 96.4 % (94.0-97.0); BG PCO2 70.8 mmHg (35.0-45.0); BG PH 7.437 (7.350-7.450); BG PO2 94.9 mmHg (75.0-100.0); BG SAMPLE SITE RIGHT RADIAL; BG TOTAL HEMOGLOBIN 9.6 g/dL (12.0-18.0); BG TOTAL RESPIRATORY RATE 25 b/min; BG VENT MODE MASK - BIPAP
[2022-03-24] MEDS: ALBUTEROL (0.083%) 2.5MG/3ML NEB HHN SCH ×2 (15:46→20:57)
[2022-03-24] MEDS ORDERED: IPRATROPIUM/ALBUTEROL 0.5-3(2.5)MG/3ML NEB NEB SCH (16:00)
[2022-03-24] MEDS ORDERED: IPRATROPIUM BROMIDE (0.02%) 0.5MG/2.5ML NEB HHN SCH (16:00)
[2022-03-24] MEDS: FUROSEMIDE 40MG/4ML VIAL IVP SCH (16:04)
[2022-03-24] MEDS: PIPERACILLIN/TAZOBACTAM 3.375 G in DEXTROSE 5% WATER 50 ML IV SCH ×2 (16:05→22:16)
[2022-03-24] MEDS: BUDESONIDE 0.5MG/2ML NEB HHN SCH (20:57)
[2022-03-25] VITALS (12 sets, daily range): BP systolic 102–132; BP diastolic 51–81
[2022-03-25] MEDS: ALBUTEROL (0.083%) 2.5MG/3ML NEB HHN SCH ×6 (01:07→20:22)
[2022-03-25] MEDS: HYDROCODONE/ACETAMINOPHEN 5/325MG TABLET PO PRN ×3 (05:14→17:35)
[2022-03-25 05:27] LABS: HEMOGLOBIN. 7.7 g/dL (12.0-16.0); MEAN CORPUSCULAR HEMOGLOBIN 25.8 pg (28.0-32.0); MEAN CORPUSCULAR VOLUME 83.8 fL (81.0-99.0); MEAN PLATELET VOLUME 7.5 fl (7.4-10.4); PLATELET 132 x1000/uL (130-400); RED BLOOD CELL COUNT 2.98 mill/uL (4.2-5.4); RED CELL DISTRIBUTION WIDTH 21.1 % (11.6-14.6)
[2022-03-25 05:35] LABS: CHLORIDE 91 mEq/L (98-107)
[2022-03-25] MEDS: PIPERACILLIN/TAZOBACTAM 3.375 G in DEXTROSE 5% WATER 50 ML IV SCH ×3 (06:00→22:19)
[2022-03-25] MEDS: BUDESONIDE 0.5MG/2ML NEB HHN SCH ×2 (08:35→20:23)
[2022-03-25] MEDS: FUROSEMIDE 40MG/4ML VIAL IVP SCH (09:47)
[2022-03-25 11:51] LABS: PLATELET ESTIMATE NORMAL
[2022-03-25] MEDS ORDERED: DOCUSATE SODIUM 250MG CAPSULE PO NR (14:15)
[2022-03-25] MEDS ORDERED: THROAT LOZENGES-BENZOCAINE/MENTH/CETYLPYRD CL LOZENGES MM PRN (14:15)
[2022-03-26] VITALS (14 sets, daily range): BP systolic 111–139; BP diastolic 55–81
[2022-03-26] MEDS: ALBUTEROL (0.083%) 2.5MG/3ML NEB HHN SCH ×6 (00:22→21:40)
[2022-03-26] MEDS: HYDROCODONE/ACETAMINOPHEN 5/325MG TABLET PO PRN ×3 (03:43→21:32)
[2022-03-26] MEDS: PIPERACILLIN/TAZOBACTAM 3.375 G in DEXTROSE 5% WATER 50 ML IV SCH ×3 (06:51→21:28)
[2022-03-26] MEDS: BUDESONIDE 0.5MG/2ML NEB HHN SCH ×2 (08:15→21:39)
[2022-03-26] MEDS: FUROSEMIDE 40MG/4ML VIAL IVP SCH (09:32)
[2022-03-26] MEDS: LACTULOSE 20G/30ML UDC PO SCH (16:41)
[2022-03-27] VITALS (12 sets, daily range): BP systolic 119–139; BP diastolic 49–89
[2022-03-27] MEDS: ALBUTEROL (0.083%) 2.5MG/3ML NEB HHN SCH ×4 (01:15→12:39)
[2022-03-27 06:02] LABS: EOSINOPHILS % 1.2 % (0.0-5.0); HEMOGLOBIN. 7.5 g/dL (12.0-16.0); LYMPHOCYTES % 9.6 % (20.0-50.0); MEAN CORPUSCULAR VOLUME 82.9 fL (81.0-99.0); MEAN PLATELET VOLUME 7.2 fl (7.4-10.4); MONOCYTES % 7.6 % (2.0-8.0); NEUTROPHILS % 81.6 % (40.0-76.0); PLATELET 153 x1000/uL (130-400); RED BLOOD CELL COUNT 2.89 mill/uL (4.2-5.4); RED CELL DISTRIBUTION WIDTH 21.7 % (11.6-14.6)
[2022-03-27] MEDS: PIPERACILLIN/TAZOBACTAM 3.375 G in DEXTROSE 5% WATER 50 ML IV SCH ×2 (06:42→12:58)
[2022-03-27] MEDS: HYDROCODONE/ACETAMINOPHEN 5/325MG TABLET PO PRN ×2 (07:03→12:53)
[2022-03-27] MEDS: BUDESONIDE 0.5MG/2ML NEB HHN SCH (08:29)
[2022-03-27] MEDS: LACTULOSE 20G/30ML UDC PO SCH ×2 (08:41→16:26)
[2022-03-27] MEDS: FUROSEMIDE 40MG/4ML VIAL IVP SCH (08:41)
[2022-03-27 14:27] LABS: CHLORIDE 88 mEq/L (98-107)
[2022-03-27] MEDS ORDERED: POTASSIUM CHLORIDE 20MEQ TABLET SR PO NR (16:15)
== END 2022-03-27 16:30 | disposition home or self-care (01) | DRG 871 ==
LOC: ER 13:16 → EDBEDREQSVC 17:45 → EDBEDREQTM 17:45 → EDBEDREQ 17:45 → 5EST 03-24 00:05 → MICUSO 03-24 00:48 → 5EST 03-24 09:59
PROVIDERS: ADMIT Internal Medicine; ATTEND Internal Medicine
PROC: 5A09357 Assistance with Respiratory Ventilation, Less than 24 Consecutive Hours, Continuous Positive Airway Pressure (ICD-10-PCS; principal; 2022-03-24)
PROC: 5A09357 Assistance with Respiratory Ventilation, Less than 24 Consecutive Hours, Continuous Positive Airway Pressure (ICD-10-PCS; 2022-03-25)
DX: A41.9 Sepsis, unspecified organism (principal); I50.21 Acute systolic (congestive) heart failure; J18.9 Pneumonia, unspecified organism; J96.22 Acute and chronic respiratory failure with hypercapnia; J96.21 Acute and chronic respiratory failure with hypoxia; J98.11 Atelectasis; J45.901 Unspecified asthma with (acute) exacerbation; J44.0 Chronic obstructive pulmonary disease with (acute) lower respiratory infection; E66.2 Morbid (severe) obesity with alveolar hypoventilation; Z20.822 Contact with and (suspected) exposure to COVID-19; G47.33 Obstructive sleep apnea (adult) (pediatric); I11.0 Hypertensive heart disease with heart failure; I48.91 Unspecified atrial fibrillation; K59.00 Constipation, unspecified; D64.9 Anemia, unspecified; Z68.36 Body mass index [BMI] 36.0-36.9, adult; Z85.41 Personal history of malignant neoplasm of cervix uteri; Z99.81 Dependence on supplemental oxygen; Z74.01 Bed confinement status; Z88.6 Allergy status to analgesic agent; Z83.3 Family history of diabetes mellitus; Z82.49 Family history of ischemic heart disease and other diseases of the circulatory system; Z85.42 Personal history of malignant neoplasm of other parts of uterus
CPT/HCPCS: 36415; 36600; 71045; 80048; 80053; 82375; 82805; 83036; 83880; 84145; 84484; 85025; 87426; 87804; 93005; 94640; 94660; 97161; 99291; C1893; C9803; J1940; J2270; J2543; J2930; J7060; J7626